=== PATIENT | female | born 1965 | race Caucasian/White ===

== ENCOUNTER 2019-07-21 08:53 | Outpatient (CLI) | payer MEDICARE, BC, SELFPAY ==
--- NOTE | 2019-07-24 00:41 | WPDPFTINT ---
PFT Interpretation PFT Interpretation: DOS:07/21/2019 REQUESTING: Dr. Osullivan REASON FOR TESTING: Cough PULMONARY FUNCTION TESTS Spirometry: Moderately severe decrease in FEV1 55% predicted. Severe decrease in FVC 48%. Normal FEV1%. No bronchodilator was given. Lung volumes: Mild restrictive impairment with mild decrease in total lung capacity 78% predicted. There is a decrease in ERV at 21% predicted which may be due to BMI elevation 40.2. Mild air trapping is present with increased residual volume 121%. Mild increase in airway resistance 134%. Diffusion: DLCO is moderately decreased 45%. DLCO corrected for alveolar volume is normal. Flow volume loop: Not reproducible. IMPRESSION: Mild restrictive impairment with moderately severe decrease in diffusion. Mild air trapping. Decreased DLCO with restriction can be seen in pneumonitis and interstitial lung diseases including sarcoidosis. Elevated body mass index can cause restriction but not the decrease in diffusion. Consider high resolution chest CT to further evaluate the decreased diffusion. Nelly Condon MD
== END 2019-07-21 08:54 | disposition home or self-care (01) ==
LOC: ANHPFT 08:57
PROVIDERS: PCP Family Medicine; Visit Provider Family Medicine
DX: R05 Cough (principal); R94.2 Abnormal results of pulmonary function studies
CPT/HCPCS: 94375; 94726; 94729

== ENCOUNTER 2019-09-21 15:17 | Emergency (ER) | payer MEDICARE, SELFPAY ==
[2019-09-21 15:25] VITALS: BP 102/76; PULSE 96; RESP 16; TEMP 37.7; O2SAT 94
--- NOTE | 2019-09-21 15:26 | ED.EAR ---
HPI - Ear Problem General Chief complaint: Ear <COLLIN Trevizo Last Filed: 09/21/19 16:30> Stated complaint: left ear pain <COLLIN Trevizo Last Filed: 09/21/19 16:30> Time Seen by Provider: 09/21/19 15:19 <COLLIN Trevizo Last Filed: 09/21/19 16:30> Source: patient <COLLIN Trevizo Last Filed: 09/21/19 16:30> Mode of arrival: ambulatory <COLLIN Trevizo Last Filed: 09/21/19 16:30> Limitations: no limitations <COLLIN Trevizo Last Filed: 09/21/19 16:30> History of Present Illness HPI Narrative: Pt is a 54 y/o female who presents to the ED with c/o constant lt ear ache and fullness for 3 weeks. She states that she called her PCP to get an appointment and instead they called her something in the pharmacy, but when she went to the pharmacy it was not there, so she decided to come to the ED. Pt reports chills, but denies fever, ear drainage, cough, congestion, sore throat, or rhinorrhea. She has a H/O CHF, CABG, CAD, HTN, and DM. <COLLIN Trevizo Last Filed: 09/21/19 16:30> MD Complaint: ear pain <COLLIN Trevizo Last Filed: 09/21/19 16:30> Location: left ear <COLLIN Trevizo Last Filed: 09/21/19 16:30> Duration: constant <COLLIN Trevizo Last Filed: 09/21/19 16:30> Relieving factors: nothing <COLLIN Trevizo Last Filed: 09/21/19 16:30> Discharge from ear: Reports no <COLLIN Trevizo Last Filed: 09/21/19 16:30> Associated symptoms ear: other (chills) <COLLIN Trevizo Last Filed: 09/21/19 16:30> Related Data Home medications: Home Medications Medication Instructions Recorded Confirmed alprazolam 09/21/19 atorvastatin 09/21/19 carvedilol 09/21/19 hydroxyzine HCl 09/21/19 insulin glargine U-300 conc unit SUBCUT HS 09/21/19 [Toujeo SoloStar U-300 Insulin] insulin lispro [Humalog KwikPen unit SUBCUT 09/21/19 Insulin] losartan 09/21/19 omeprazole 09/21/19 sevelamer carbonate 09/21/19 <Judi Anaya PA-C - Last Filed: 09/21/19 16:30> Allergies/adverse reactions: Allergies Allergy/AdvReac Type Severity Reaction Status Date / Time No Known Allergies Allergy Unverified 09/21/19 15:24 <COLLIN Trevizo Last Filed: 09/21/19 16:30> Review of Systems Review of Systems: All systems reviewed & are unremarkable except as noted in HPI and below <COLLIN Trevizo Last Filed: 09/21/19 16:30> Constitutional: Constitutional: Reports chills and Denies fever(s) <COLLIN Trevizo Last Filed: 09/21/19 16:30> ENT: Denies ear discharge, Reports otalgia (lt ear ache and fullness), Denies nasal congestion, Denies sore throat and Denies other (rhinorrhea) <COLLIN Trevizo Last Filed: 09/21/19 16:30> Respiratory: Respiratory: Denies cough <COLLIN Trevizo Last Filed: 09/21/19 16:30> [facility] Past Medical History Medical History: Medical History CAD (coronary artery disease) CHF (congestive heart failure) Diabetes mellitus HTN (hypertension) <COLLIN Trevizo Last Filed: 09/21/19 16:30> Surgical History Surgical History: Surgical History H/O section H/O tubal ligation H/O: hysterectomy Hx of CABG <Judi Anaya PA-C - Last Filed: 09/21/19 16:30> Family History Family History: Family History (Updated 12/28/18 @ 11:13 by DOCTOR UNKNOWN) Mother Patient's mother is <Judi Anaya PA-C - Last Filed: 09/21/19 16:30> Social History Social History: Social History Smoking status: Never smoker Alcohol intake: current <Judi Anaya PA-C - Last Filed: 09/21/19 16:30> Exam Narrative: Exam Narrative: GENERAL: Well-appearing, obese, and in no acute
--- NOTE | 2019-09-21 16:42 | PC.NURSE ---
Per SHIRA Lynn, pt's left ear irrigated with warm water and had return of large amt of black ear wax. Pt reports relief of pain.
[2019-09-21 16:50] VITALS: BP 128/76; PULSE 85; RESP 20; TEMP 37.9; O2SAT 98
== END 2019-09-21 16:54 | disposition home or self-care (01) ==
PROVIDERS: Emergency Provider Emergency Medicine; PCP Family Medicine
DX: H61.22 Impacted cerumen, left ear (principal); I50.9 Heart failure, unspecified; I25.10 Atherosclerotic heart disease of native coronary artery without angina pectoris; I11.0 Hypertensive heart disease with heart failure; E11.9 Type 2 diabetes mellitus without complications; Z95.1 Presence of aortocoronary bypass graft; Z79.4 Long term (current) use of insulin
CPT/HCPCS: 69209; 99282

== ENCOUNTER 2019-09-23 19:23 | Inpatient (IN) | payer MEDICARE, SELFPAY ==
--- NOTE | ~2019-09-23 | XR_ITS ---
EXAMINATION: XR chest-chest tube insert/pos DATE: 09/30/2019 10:51 INDICATION: Right pneumothorax. TECHNIQUE: A single frontal view of the chest was obtained. COMPARISON: Chest single view at 5:24 AM FINDINGS: There are patchy airspace opacities throughout the lungs bilaterally. A skin fold overlies left hemithorax. No pneumothorax. 2 right-sided chest tubes are noted. Median sternotomy wires are no lucia. There is extensive gas in the chest wall bilaterally. The endotracheal tube tip is 2.5 cm above the cullen. The nasogastric tube is not well-visualized distally. IMPRESSION: 1. No pneumothorax. Two right-sided chest tubes noted. 2. Diffuse lung disease, consistent with pneumonia versus acute respiratory distress syndrome (ARDS). Reviewed, dictated and finalized at location A. IMPRESSION: 1. No pneumothorax. Two right-sided chest tubes noted. 2. Diffuse lung disease, consistent with pneumonia versus acute respiratory dis tress syndrome (ARDS).
--- NOTE | ~2019-09-23 | XR_ITS ---
EXAMINATION: XR chest 1V portable DATE: 09/28/2019 07:47 INDICATION: Worsening hypoxia. TECHNIQUE: A single frontal view of the chest was obtained. COMPARISON: Chest single view 09/25/2019 FINDINGS: There are airspace opacities in all right lung zones and in left mid and lower lung zones. No pleural effusion or pneumothorax. Cardiomegaly is noted. Median sternotomy wires and mediastinal s urgical clips are seen, likely from prior coronary artery bypass grafting. There are multiple old hea led right rib fractures. IMPRESSION: 1. Worsened diffuse lung disease, consistent with pulmonary edema versus pneumonia versus acute respi ratory distress syndrome (ARDS). 2. Cardiomegaly. Reviewed, dictated and finalized at location A. IMPRESSION: 1. Worsened diffuse lung disease, consistent with pulmonary edema versus pneumo prateek versus acute respiratory distress syndrome (ARDS). 2. Cardiomegaly.
--- NOTE | ~2019-09-23 | XR_ITS ---
EXAMINATION: XR chest 1V portable EXAM DATE: 09/23/2019 20:53 INDICATION: Cough and fever. Weakness. TECHNIQUE: Portable AP frontal chest x-ray was obtained. Comparison is made to prior examination from 08/09/2019. FINDINGS: Chronically elevated left hemidiaphragm with adjacent atelectasis. Again there is mild card iomegaly. Development of pulmonary vascular congestion. Bilateral indistinct reticulation, some groun d glass opacities, could indicate edema and/or infection. No sizable pleural effusion. No pneumothora x. Sternotomy wires are present without findings to suggest sternal dehiscence. Mild thoracic scolios is. IMPRESSION: 1. Cardiomegaly, congestion, possible mild pulmonary edema. Infection not excludable. Reviewed, dictated and finalized at location A. IMPRESSION: 1. Cardiomegaly, congestion, possible mild pulmonary edema. Infection not excl udable.
--- NOTE | ~2019-09-23 | XR_ITS ---
EXAMINATION: XR abdomen NG/feed tube insert INDICATION: Nasogastric tube insertion TECHNIQUE: Portable AP KUB-NG at 0958 hours COMPARISON: None available FINDINGS: The nasogastric tube is in the stomach. A moderate to large right pneumothorax is noted. IMPRESSION: 1. Nasogastric tube in the stomach. 2. Moderate to large right pneumothorax. Reviewed, dictated and finalized at location B.
--- NOTE | ~2019-09-23 | XR_ITS ---
XR chest-chest tube insert/pos 09/29/2019 17:58 Indication: Chest tube placement. Low oxygen saturation. Procedure: AP portable chest Comparison: Comparison to multiple prior studies sequentially, with oldest reviewed study dated 09/28. Findings: Significant reduction in size of right pneumothorax post chest tube insertion. The pneumoth orax is small amount. Endotracheal tube tip approximately 4 cm above the cullen. NG tube in the stoma ch. Diffuse bilateral airspace disease has progressed. Left IJ central line tip in the SVC. There is extensive subcutaneous emphysema right chest wall. Impression: 1: Significant reduction in size of right pneumothorax post chest tube placement. 2: Progression of diffuse bilateral airspace disease which may represent edema, pneumonia and/or FERNANDO S. Reviewed, dictated and finalized at location A. Impression: 1: Significant reduction in size of right pneumothorax post chest tube placemen t. 2: Progression of diffuse bilateral airspace disease which may represent edema , pneumonia and/or ARDS.
--- NOTE | ~2019-09-23 | XR_ITS ---
EXAMINATION: XR chest-chest tube insert/pos DATE: 09/29/2019 11:31 INDICATION: Right pneumothorax status post chest tube adjustment. TECHNIQUE: A single frontal view of the chest was obtained. COMPARISON: Chest single view at 10:53 AM FINDINGS: There are patchy airspace opacities throughout the lungs bilaterally, right worse than left . No pleural effusion. There is a tiny right pneumothorax. There is a right-sided chest tube in expec lucia position. The endotracheal tube tip is 11 mm above the cullen. Median sternotomy wires are noted. The heart size is normal. There is gas in right lateral chest wall. A left internal jugular central venous catheter is seen with tip in the superior vena cava. IMPRESSION: 1. Tiny right pneumothorax with interval improvement. Right-sided chest tube in expected position. 2. Diffuse lung disease, consistent with pneumonia versus acute respiratory distress syndrome (ARDS). Reviewed, dictated and finalized at location A. IMPRESSION: 1. Tiny right pneumothorax with interval improvement. Right-sided chest tube in expected position. 2. Diffuse lung disease, consistent with pneumonia versus acute respiratory dis tress syndrome (ARDS).
--- NOTE | ~2019-09-23 | XR_ITS ---
EXAMINATION: XR chest ET placement INDICATION: Nasogastric TECHNIQUE: Portable AP chest at respiratory failure and central line insertion COMPARISON: 0454 hours FINDINGS: The endotracheal tube ends approximately 1.9 cm above the cullen. The nasogastric tube is followed as far as the stomach. Its tip is beyond the inferior margin of the radiograph. A left inter nal jugular central venous catheter is been inserted which ends with its tip at the distal superior v chauncey cava. A moderate to large right pneumothorax is now present. There is diffuse opacification of th e left hemithorax and near complete collapse of the right lung. Cardiomegaly is noted. Median sternot darrin wires and mediastinal surgical clips are seen, likely from prior coronary artery bypass grafting. IMPRESSION: 1. Moderate to large right pneumothorax. This finding was discussed with Dr. Blu Issa MD a t 1021 hours on 09/29/2019. 2. Endotracheal and nasogastric tubes and left internal jugular catheter in adequate position. 3. Unchanged diffuse opacity of the left lung and near complete collapse of right lung. Reviewed, dictated and finalized at location B. IMPRESSION: 1. Moderate to large right pneumothorax. This finding was discussed with Dr. Wanda Issa MD at 1021 hours on 09/29/2019. 2. Endotracheal and nasogastric tubes and left internal jugular catheter in ursula quate position. 3. Unchanged diffuse opacity of the left lung and near complete collapse of rig ht lung.
--- NOTE | ~2019-09-23 | XR_ITS ---
EXAMINATION: XR chest 1V portable DATE: 09/30/2019 06:25 INDICATION: Bilateral infiltrates. TECHNIQUE: A single frontal view of the chest was obtained. COMPARISON: Chest single view 09/29/2019 FINDINGS: There is a moderate-sized right pneumothorax. The right-sided chest tube has retracted slig htly. There are patchy airspace opacities throughout the lungs bilaterally. No pleural effusion. The heart size is normal. Median sternotomy wires are noted. A skin fold overlies left chest. The endotra cheal tube tip is 3.0 cm above the cullen. There is gas in right lateral chest wall. The nasogastric tube is not well-visualized distally. IMPRESSION: 1. Worsened moderate-sized right pneumothorax with slight retraction of the chest tube. I discussed t his result with Dr. Issa on 09/30/19 at 7:41 AM. 2. Diffuse lung disease, consistent with pneumonia versus acute respiratory distress syndrome (ARDS). Reviewed, dictated and finalized at location A. IMPRESSION: 1. Worsened moderate-sized right pneumothorax with slight retraction of the m[address] st tube. I discussed this result with Dr. Issa on 09/30/19 at 7:41 AM. 2. Diffuse lung disease, consistent with pneumonia versus acute respiratory dis tress syndrome (ARDS).
--- NOTE | ~2019-09-23 | XR_ITS ---
EXAMINATION: XR chest 1V portable DATE: 09/29/2019 06:26 INDICATION: Bilateral infiltrates. TECHNIQUE: A single frontal view of the chest was obtained. COMPARISON: Chest single view 09/28/2019 FINDINGS: There are patchy airspace opacities throughout the lungs bilaterally with relative sparing of left upper lung zone. There is mild elevation of left hemidiaphragm. No pleural effusion or pneumo thorax. Cardiomegaly is noted. Median sternotomy wires and mediastinal surgical clips are seen, likel y from prior coronary artery bypass grafting. There are multiple old healed right rib fractures. IMPRESSION: 1. Worsened diffuse lung disease, consistent with pulmonary edema versus pneumonia versus acute respi ratory distress syndrome (ARDS). 2. Cardiomegaly. Reviewed, dictated and finalized at location A. IMPRESSION: 1. Worsened diffuse lung disease, consistent with pulmonary edema versus pneumo prateek versus acute respiratory distress syndrome (ARDS). 2. Cardiomegaly.
--- NOTE | ~2019-09-23 | US_ITS ---
EXAMINATION: US right upper quadrant DATE: 09/25/2019 10:23 INDICATION: Abnormal liver function tests. TECHNIQUE: Multiple grayscale and Doppler ultrasound images of the abdomen were obtained. COMPARISON: CT abdomen 05/24/2019 FINDINGS: The visualized portions of the head, body, and tail of the pancreas are normal. The liver i s normal without focal lesion. No liver surface nodularity. There is normal flow in main portal vein. The gallbladder is normal in size and contains sludge. No gallstones or gallbladder wall thickening. There was no sonographic Mercado sign. The common duct is normal and measures 4 mm. The spleen is nor mal in size. Calcifications in the spleen are consistent with old granulomatous disease. IMPRESSION: 1. No evidence of cirrhosis. Reviewed, dictated and finalized at location A.
--- NOTE | ~2019-09-23 | XR_ITS ---
EXAMINATION: XR chest-chest tube insert/pos DATE: 09/29/2019 11:31 INDICATION: Right pneumothorax. TECHNIQUE: A single frontal view of the chest was obtained. COMPARISON: Chest single view at 9:55 AM FINDINGS: There is a large right pneumothorax. There are airspace opacities in all lung zones bilater ally. No pleural effusion. The heart size is normal. The endotracheal tube tip is 10 mm above the car benjie. Median sternotomy wires are noted. There is a chest tube in right chest wall. There are multiple old healed right rib fractures. There is gas in right lateral chest wall. A left internal jugular ce ntral venous catheter is seen with tip in the superior vena cava. IMPRESSION: 1. Persistent large right pneumothorax. Chest tube in abnormal position. 2. Unchanged diffuse lung disease, consistent with pneumonia versus acute respiratory distress syndro me (ARDS) and right-sided atelectasis. Reviewed, dictated and finalized at location A. IMPRESSION: 1. Persistent large right pneumothorax. Chest tube in abnormal position. 2. Unchanged diffuse lung disease, consistent with pneumonia versus acute respi ratory distress syndrome (ARDS) and right-sided atelectasis.
--- NOTE | ~2019-09-23 | XR_ITS ---
EXAMINATION: XR chest 1V portable DATE: 09/25/2019 06:06 INDICATION: Pneumonia. TECHNIQUE: A single frontal view of the chest was obtained. COMPARISON: Chest single view 09/23/2019, abdomen CT 05/24/2019 FINDINGS: There is chronic elevation of left hemidiaphragm. There are mild airspace opacities in the mid and lower lung zones. No pleural effusion or pneumothorax. The heart size is normal. Median ronquillo otomy wires and mediastinal surgical clips are seen, likely from prior coronary artery bypass graftin g. There are multiple old healed right rib fractures. IMPRESSION: 1. Unchanged mild airspace opacities in the mid and lower lung zones, consistent with atelectasis aj cris pneumonia. Reviewed, dictated and finalized at location A. IMPRESSION: 1. Unchanged mild airspace opacities in the mid and lower lung zones, consisten t with atelectasis versus pneumonia.
[2019-09-23 19:33] VITALS: BP 153/68; PULSE 87; RESP 22; TEMP 38.9; O2SAT 92
--- NOTE | 2019-09-23 20:15 | ED.FEVER ---
HPI - Fever General Chief Complaint: Fever Stated Complaint: Fever, panic attack? Time Seen by Provider: 09/23/19 19:37 Source: patient Mode of arrival: ambulatory Limitations: no limitations History of Present Illness HPI Narrative: This is a 54 year old female that presents to the ER for fever today. Reports she was almost through her dialysis today and started to feel generally unwell. Reports she was febrile. Reports she has had a productive cough, but this has been chronic for her. Reports she was put on an antibiotic today for an ear infection of the left ear. Reports a couple episodes of vomiting yesterday. Denies chest pain, shortness of breath, sore throat, abdominal pain, diarrhea, dysuria or hematuria. Related Data Home Medications Medication Instructions Recorded Confirmed alprazolam 09/21/19 atorvastatin 09/21/19 carvedilol 09/21/19 hydroxyzine HCl 09/21/19 insulin glargine U-300 conc unit SUBCUT HS 09/21/19 [Toujeo SoloStar U-300 Insulin] insulin lispro [Humalog KwikPen unit SUBCUT 09/21/19 Insulin] losartan 09/21/19 omeprazole 09/21/19 sevelamer carbonate 09/21/19 Allergies Allergy/AdvReac Type Severity Reaction Status Date / Time No Known Allergies Allergy Unverified 09/21/19 15:24 Review of Systems Review of Systems: Narrative: CONSTITUTIONAL: Reports fever ENT: Denies rhinorrhea, congestion, sore throat CARDIOVASCULAR: Denies chest pain RESPIRATORY: Reports cough. Denies dyspnea. GASTROINTESTINAL: Reports nausea, vomiting, and diarrhea. Denies abdominal pain GENITOURINARY: Denies dysuria or hematuria. SKIN: Denies rash All systems reviewed & are unremarkable except as noted in HPI and below [facility] Family History Family History (Updated 12/28/18 @ 11:13 by DOCTOR UNKNOWN) Mother Patient's mother is Social History Social History Smoking status: Never smoker Alcohol intake: current Exam Narrative: Exam Narrative: GENERAL: Well-appearing, obese, and in no acute distress. HEAD: Normocephalic, atraumatic. EYES: EOMI. ENT: Nares clear, no rhinorrhea or epistaxis. Mucous membranes moist. Oropharynx without tonsillar hypertrophy exudate or other lesions. Bilateral TMs pearly russell non-bulging NECK: Supple. No adenopathy or masses. CHEST: Clear to auscultation. No respiratory distress. No wheezes rales or rhonchi HEART: Regular rate and rhythm. No murmur heard. Normal peripheral pulses. ABDOMEN: Soft, nontender, nondistended, normal active bowel sounds. EXTREMITIES: Normal range of motion. No edema. Right upper arm dialysis graft without surrounding erythema or edema SKIN: Warm, dry, no rash. NEURO: No focal deficits. Alert and oriented x3. PSYCH: Normal mood and affect Course Consultations Consultation #1: Spoke with hospitalist about patient and work-up who accepts admission Date: 09/23/19 Time: 23:38 Vital Signs Vital signs: Vital Signs Temperature 102.1 F H 09/23/19 19:33 Pulse Rate 87 09/23/19 19:33 Respiratory Rate 22 H 09/23/19 19:33 Blood Pressure 153/68 H 09/23/19 19:33 Pulse Oximetry 92 09/23/19 19:33 Temperature 99.6 F 09/23/19 23:09 Pulse Rate 80 09/23/19 23:09 Respiratory Rate 22 H 09/23/19 19:33 Blood Pressure 129/84 09/23/19 23:09 Pulse Oximetry 99 09/23/19 23:09 MDM - Fever MDM Narrative Medical decision making narrative: Patient presents to the ER for fever and generalized weakness. Patient febrile upon arrival to 102. Patient with oxygen saturation in the low 90s/high 80s on room air. Patient placed on 2L NC with improvement. CBC without leukocytosis. Hemoglobin appears to be around baseline. Metabolic panel with kidney function which appears to be around baseline. BNP is elevated to 3630. CRP, LDH and ferritin are elevated. Lactic acid is not elevated. Influenza screen is negative. Chest x-ray shows bilateral reticulations/groundglass
[2019-09-23 20:37] LABS: Basophils Percent Auto 0.2 % (0.2-1.2); Hematocrit 32.9 % (37.0-47.0); Hemoglobin 10.5 g/dL (12.0-15.0); Immature Granulocyte Absolute 0.04 K/mm3 (0.00-0.031); Immature Granulocyte Percent A 0.7 % (0-0.5); Lymphocytes Absolute Auto 0.93 K/mm3 (0.9-3.2); Lymphocytes Percent Auto 17.3 % (18.3-44.2); Mean Corpuscular HGB Conc 31.9 g/dl (32-36); Mean Corpuscular Hemoglobin 32.6 pg (26-34); Mean Corpuscular Volume 102.2 fl (80-100); Mean Platelet Volume 10.1 fl (7.4-10.4); Monocytes Absolute Auto 0.5 K/mm3 (0.1-0.6); Monocytes Percent Auto 9.5 % (2.6-8.5); Neutrophils Absolute Auto 3.9 K/mm3 (1.3-6.7); Neutrophils Percent Auto 72.3 % (45.5-73.1); Platelet Count Result 163 k/mm3 (150-375); Red Blood Count 3.22 M/mm3 (4.2-5.4); Red Cell Distribution Width 13.1 % (11.5-14.5); White Blood Count 5.4 K/mm3 (4.5-10.0)
[2019-09-23 20:48] LABS: INR 0.9; Lactic Acid Reflex 1.1 mmol/L (0.7-2.1); Prothrombin Time 11.8 Seconds (11.1-14.7)
[2019-09-23 20:49] LABS: Partial Thromboplastin Time 25.2 SECONDS (22.3-36.8)
[2019-09-23 20:50] LABS: Alanine Aminotransferase 34 U/L (4-35); Albumin Level 3.7 g/dL (3.5-5.1); Alkaline Phosphatase 178 U/L (38-126); Aspartate Amino Transferase 44 U/L (14-36); Bilirubin,Total 0.3 mg/dL (0.2-1.3); Blood Urea Nitrogen 36 mg/dL (7-17); Calcium 8.6 mg/dL (8.4-10.2); Carbon Dioxide 32 mmol/L (22-30); Chloride 95 mmol/L (98-107); Estimated Glomerular Filt Rate 10; Glucose 96 mg/dL (65-105); Lipase 399 U/L (23-300); Potassium 4.6 mmol/L (3.4-5.0); Sodium 134 mmol/L (137-145)
[2019-09-23 21:07] VITALS: TEMP 37.6
[2019-09-23 21:27] LABS: NT Pro B Type Natriuretic Pept 3630 PG/ML (5-100)
[2019-09-23 21:28] LABS: Lactate Dehydrogenase 563 U/L (313-618)
[2019-09-23 22:20] LABS: CRP 6.3 mg/dL (<1.0)
[2019-09-23 23:09] VITALS: BP 129/84; PULSE 80; TEMP 37.6; O2SAT 99
--- NOTE | 2019-09-23 23:13 | ECG_ITS ---
Measurements Intervals Ida Rate: 77 P: 46 IL: 142 QRS: -23 QRSD: 98 T: 67 QT: 412 QTc: 466 Interpretive Statements SINUS RHYTHM WITH SINUS ARRHYTHMIA BORDERLINE R WAVE PROGRESSION, ANTERIOR LEADS BORDERLINE ST-T WAVE ABNORMALITY- LATERAL LEADS BASELINE ARTIFACT- I, II, AVR, V6 BORDERLINE ECG Electronically Signed On 09-24-2019 7:49:46 CDT by Phoenix Watkins D.O.
[2019-09-23] MEDS: BUMETANIDE 1 MG TABLET PO (23:35)
[2019-09-24] VITALS (14 sets, daily range): BP systolic 98–150; BP diastolic 50–82; PULSE 67–88; RESP 16–20; TEMP 36.7–38.2; O2SAT 94–100; BMI 43.6
--- NOTE | 2019-09-24 01:12 | PC.NURSE ---
Dialysis normally takes 3.5L off but only took 3.2 off due to Pt feeling ill and not gaining much weight. Pt states she goes to dialysis on ,Sat. Dialysis port located right upper arm.
--- NOTE | 2019-09-24 01:52 | ADMGEN ---
This patient, Kayli Snowden, was admitted to [facility] Surg Room 331-01. Patient/family oriented to hospital policies and general routines including ID bracelet, bed and alarms, visiting hours, pain management, procedures, bathroom and other care routines, personal items, smoking policy, room service/diet, and visiting hours. Valuables list has been completed. Information on how to activate the Rapid Response Team has been discussed. Patient/Family are encouraged to report perceived risks to care and to ask questions if they do not understand what they are told or what they should do.
--- NOTE | 2019-09-24 05:19 | PM.IMHP ---
H&P: HPI History of Present Illness Chief complaint: Fever and chills Narrative: Kayli Snowden is a 54 year old female with a past medical history of coronary artery disease, insulin-dependent diabetes and end-stage renal disease who presented to the ER due to not feeling well with fevers and chills. To the ER on 09/21/2019 due to left ear pain. At that time she she was found have cerumen impaction which was cleared and she was discharged home without antibiotics. The patient called her primary care physician who then prescribed her doxycycline. She took the doxycycline on the and . She then went to her hemodialysis appointment on the . Her docketing specialist at that time changed her antibiotics to Augmentin and she took 1 dose prior to coming to the ER. However her ear pain had already resolved prior to the antibiotic change. When she arrived at her dialysis appointment she did not have a fever. Unfortunately part of the way through her dialysis appointment she began to feel weak and was chilled. She usually does get some chills at dialysis due to keeping the facility cool. But she also noticed that over the last couple of days she has had a cough productive of brown sputum. She always has a chronic dry cough but her cough has increased in frequency and intensity and is now productive. When she went home after dialysis she began having rigors and could not give warm and subsequently decided to come to the ER. On arrival to the ER the patient's temperature was as high as 102.1. She denies any known ill contacts but does have to go to dialysis 3 times a week. She also went shopping at [employer] about 2 weeks ago and has very crowded. She has been having an intermittent frontal headache. She denies any visual changes, neck stiffness or confusion. She denies any sore throat or difficulty swallowing. She has not had any recent travel. She denies any diarrhea or changes in bowel habits but has been having some nausea. She still does produce urine usually each morning. She denies any dysuria foul-smelling urine or hematuria. She has not noticed any easy bruising. Review of Systems Review of Systems: Narrative: 12 systems were reviewed with pertinent positives and negatives per HPI. Except as documented in the HPI, all other systems were reviewed and are negative. [facility] Past Medical History Medical History (Updated 09/24/19 @ 05:35 by Nissa Irene DO) CAD (coronary artery disease) CHF (congestive heart failure) Diabetes mellitus ESRD on hemodialysis Since June 2017 with hemodialysis Wednesday//Wednesday at [facility] in [place] managed by Dr. Zhao HTN (hypertension) Surgical History Surgical History (Updated 09/24/19 @ 05:35 by Nissa Irene DO) H/O section H/O tubal ligation History of bilateral cataract extraction 2011 History of hysterectomy 2007 Hx of CABG Three vessel CABG in 2018 Presence of arteriovenous fistula for hemodialysis Left upper arm Family History Family History Mother Heart disease She in her 70s of late onset heart disease. Father Diabetes mellitus Hypertension Heart disease End stage renal disease Social History Social History (Updated 09/24/19 @ 05:39 by Nissa Irene DO) Social History: Primary care physician: Dr. Pennie Osullivan Code status: Full code Smoking status: Never smoker Alcohol intake: current Alcohol use details: The patient only rarely drinks alcohol and only in small amounts. Substance use: never Additional living arrangements comments: She lives with her boyfriend of 4 years. She has 4 adult children who she reports all relatively healthy. 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 She is now disabled. Gender identity (if verbali
[2019-09-24 08:06] LABS: Add Urine Microscopic? YES; Appearance Urine Cloudy (Clear); Bacteria Urine Trace /hpf; Bilirubin Urine Negative (Negative); Blood Urine Negative (Negative); Color Urine Yellow (Yellow); Glucose Urine UA 1+ mg/dL (Negative); Ketones Urine Negative (Negative); Leukocyte Esterase Ur Negative LEU/UL (Negative); Mucus Urine Rare /lpf; Nitrate Urine Negative (Negative); Protein Urine 2+ mg/dL (Negative); RBC Urine 0-2 /hpf (0-2); Specific Grav Ur 1.016 (1.001-1.035); Squamous Epithelial Cell Urine Many /hpf (Few); Urobilinogen Urine Negative mg/dL (<2.0); WBC Urine 0-3 /hpf
[2019-09-24] MEDS: FLUTICASONE PROPIONATE 0.05% NA SPR 16 GM BTL (*BKC) 1 SPRAY NASAL ×2 (08:33→17:30)
[2019-09-24] MEDS: BUMETANIDE 1 MG TABLET PO ×3 (08:34→17:30)
[2019-09-24] MEDS: MONTELUKAST SODIUM 10 MG TABLET PO (08:34)
[2019-09-24] MEDS: ATORVASTATIN 40 MG TABLET PO (08:34)
[2019-09-24] MEDS: PANTOPRAZOLE 40 MG TABLET PO (08:34)
[2019-09-24] MEDS: ASPIRIN 81 MG ENTERIC TABLET PO (08:35)
[2019-09-24] MEDS: LOSARTAN POTASSIUM 100 MG TABLET PO (08:35)
[2019-09-24] MEDS: hydrOXYzine HCL 25 MG TABLET PO (08:38)
[2019-09-24] MEDS: ALPRAZOLAM 0.5 MG TABLET PO (08:38)
[2019-09-24] MEDS: INSULIN ASPART (*BKC) 100 UNITS/ML 10 UNITS SUB-Q ×2 (08:39→12:14)
[2019-09-24] MEDS: INSULIN ASPART (*BKC) 100 UNITS/ML SUB-Q ×2 (08:56→12:15)
[2019-09-24 09:01] LABS: Glucose Point of Care 202 (65-105)
[2019-09-24] MEDS: carvediloL 25 MG TABLET PO ×2 (09:02→21:58)
[2019-09-24] MEDS: HEPARIN SODIUM 5,000 UNITS/ML VIAL 5000 UNITS SUB-Q ×2 (09:02→21:58)
[2019-09-24 12:17] LABS: Glucose Point of Care 217 (65-105)
--- NOTE | 2019-09-24 12:36 | PM.CNNEP ---
Assessment and Plan Assessment and plan (1) ESRD on hemodialysis: Code(s): N18.6 - End stage renal disease; Z99.2 - Dependence on renal dialysis Status: Acute Assessment and Plan: The patient has end-stage kidneys. She is due for dialysis on Wednesday. (2) Bilateral pneumonia: Qualifiers: Lung location: lower lobe of lung Pneumonia type: due to unspecified organism Qualified Code(s): J18.9 - Pneumonia, unspecified organism Code(s): J18.9 - Pneumonia, unspecified organism Status: Acute Assessment and Plan: The patient has pneumonia. This would be community-acquired if bacteria. She is on Ceftriaxone and Azithromycin. She is a person under investigation for covid (3) Diabetes mellitus: Code(s): E11.9 - Type 2 diabetes mellitus without complications Status: Acute Assessment and Plan: She has diabetes. On Accu-Cheks and sliding-scale insulin (4) Erythropoietin deficiency anemia: Code(s): D63.1 - Anemia in chronic kidney disease Status: Acute Assessment and Plan: Hemoglobin is target. We will continue Epogen while here (5) KEO (renal osteodystrophy): Code(s): N25.0 - Renal osteodystrophy Status: Acute Assessment and Plan: Will get a renal panel in the morning to see how her phosphorus is (6) HTN (hypertension): Code(s): I10 - Essential (primary) hypertension Status: Acute Assessment and Plan: Blood pressure is up and down. Will follow on her current antihypertensive regimen History of Present Illness Reason for Consult Consult date: 09/24/19 Chief Complaint Chief complaint: Fever and chills History of Present Illness Narrative: Kayli is a very pleasant 54-year-old lady who has end-stage renal disease on dialysis 3 times a week, coronary disease, congestive heart failure, diabetes, hypertension. She has been on dialysis for 2 years. She dialyzes on Tuesdays and Saturdays under Dr. Kayden Zhao. She has not applied for a kidney transplant because of her weight. She is trying to get on a weight loss program or possibly get bariatric surgery to enable her to get a transplant. She has never been on peritoneal dialysis. Generally her treatments do pretty well. She does not gain a whole lot a weight between treatments. The patient says that in the last couple of days she has felt gradually worse with the cough, fever, and today she developed headaches and nausea and vomiting. The patient did have some ear pain last week and she went to the emergency room. They removed cerumen from her ears. She went to her primary care physician and she got some antibiotics. She denies any chest pain. No belly pain. No skin rash or joint pains. Review of Systems Constitutional: Constitutional: Reports no additional constitutional complaints Eyes: Eyes: Reports no additional eye complaints ENT: Reports system reviewed and no additional complaints, except as documented Cardiovascular: Cardiovascular: Reports no additional cardiovascular complaints Respiratory: Respiratory: Reports no additional respiratory complaints Gastrointestinal: Gastrointestinal: Reports no additional gastrointestinal complaints Genitourinary: Genitourinary: Reports no additional female genitourinary complaints Musculoskeletal: Musculoskeletal: Reports no additional musculoskeletal complaints Integumentary/Breasts: Skin/Breast: Reports system reviewed and no additional complaints, except as docu Neurologic: Reports system reviewed and no additional complaints, except as documented Psychiatric: Psychiatric: Reports no additional psychiatric complaints PMFSH Past Medical History Medical History CAD (coronary artery disease) CHF (congestive heart failure) Diabetes mellitus ESRD on hemodialysis Since June 2017 with hemodialysis Wednesday//
[2019-09-24] MEDS: CALCIUM CARBONATE (TUMS) 500 MG (200 MG ELEMENTAL) PO ×2 (14:50→21:58)
--- NOTE | 2019-09-24 15:38 | PM.IMPN ---
Progress Note: A&P Assessment and Plan (1) Bilateral pneumonia: Qualifiers: Lung location: lower lobe of lung Pneumonia type: due to unspecified organism Qualified Code(s): J18.9 - Pneumonia, unspecified organism Code(s): J18.9 - Pneumonia, unspecified organism Status: Acute Assessment and Plan: Patient's imaging could be consistent with pulmonary edema or pneumonia. Given her fever and cough, PNA appears more likely especially since she just finished a HD treatment (although incomplete by about 30 minutes). The patient has been tested for COVID-19 through the [facility]. The patient is on appropriate isolation at this time. BCx pending. Add Sputum Cx. Influenza swab was negative in the ER. Continue Rocephin and Azithromycin. (2) Hypoxia: Code(s): R09.02 - Hypoxemia Status: Acute Assessment and Plan: Likely secondary to underlying infection. Hypoxia not severe given that she is at 100% on 2L. Wean supplemental oxygen as tolerated. (3) CHF (congestive heart failure): Qualifiers: Heart failure chronicity: chronic Heart failure type: unspecified Qualified Code(s): I50.9 - Heart failure, unspecified Code(s): I50.9 - Heart failure, unspecified Status: Acute Assessment and Plan: Echo December 2018 showing EF 55% with DD Grade I, hypokinetic segments, moderate MR and severe pulmonary HTN. Patient clinically euvolumic. Continue to monitor. Bumex resumed. (4) ESRD on hemodialysis: Code(s): N18.6 - End stage renal disease; Z99.2 - Dependence on renal dialysis Status: Acute Assessment and Plan: Patient was taken off HD 30 minutes early from treatment yesterday. Nephrology has been consulted. Continue current HD schedule of . Subjective Date/time seen: 09/24/19 15:38 Interval history: 54yo female with ESRD here for fever from PNA. Feels unwell today. Has a chronic cough but worse over the past 3 weeks. Had the fevers noted yesterday with HD but had chills x 1 week. Today, she has a headache and nausea. She is nibbling on some food and tolerating. No CP. Exam Narrative: Exam Narrative: Tm 102.1 98.6 110/82 100% on 2L General - NARD sitting up in bed Chest - very distant BS, nml RR, no conversational dyspnea. wet cough at times. CV - RRR S1/S2, PMI mid left sternal border; Tele showing no significnat dysrhythmias GI - soft, obese, NT, +BS Ext - Thrill and bruit right upper extremity AV fistula. No pedal edema. Psych - nml mood and affect Skin - cool and dry Objective Data Vital Signs Vital Signs: Vital Signs - 24 hr 09/23/19 19:33 09/23/19 21:07 09/23/19 23:09 Temperature 102.1 F H 99.6 F 99.6 F Pulse Rate 87 80 Respiratory Rate 22 H Blood Pressure 153/68 H 129/84 Pulse Oximetry 92 99 09/24/19 01:35 09/24/19 04:00 09/24/19 05:55 Temperature 98.4 F 98.2 F Pulse Rate 68 67 79 Respiratory Rate 18 18 Blood Pressure 132/68 150/73 H Pulse Oximetry 95 94 09/24/19 08:00 09/24/19 09:02 09/24/19 10:33 Temperature 98.1 F Pulse Rate 81 88 88 Respiratory Rate 18 Blood Pressure 98/50 L Pulse Oximetry 100 09/24/19 13:53 Temperature 98.6 F Pulse Rate 88 Respiratory Rate 16 Blood Pressure 110/82 Pulse Oximetry 100 Intake/Output Intake/Output: Intake & Output 09/21/19 09/22/19 09/23/19 09/24/19 23:59 23:59 23:59 23:59 Intake Total 150 650 Output Total 0 Balance 150 650 Meds/Results Medications: Active Medications Generic Name Dose Route Start Last Admin Trade Name Phillip PRN Reason Stop Dose Admin Alprazolam 0.5 mg 09/24/19 09:00 09/24/19 08:38 Xanax PO 0.5 mg DAILY HOOD Administration Aspirin 81 mg 09/24/19 09:00 09/24/19 08:35 Aspirin Ec PO 81 mg DAILY HOOD Administration Atorvastatin Calcium 40 mg 09/24/19 09:00 09/24/19 08:34 Lipitor PO 40 mg DAILY HOOD Administration Bumetanide 1 mg 09/24/19 09:
[2019-09-24 19:01] LABS: Glucose Point of Care 108 (65-105)
[2019-09-24 21:35] LABS: Glucose Point of Care 243 (65-105)
[2019-09-24] MEDS: INSULIN GLARGINE (*BKC) 100 UNITS/ML 50 UNITS SUB-Q (21:59)
[2019-09-24] MEDS: PROMETHAZINE HCL 25 MG TABLET PO (22:01)
[2019-09-25] VITALS (20 sets, daily range): BP systolic 97–138; BP diastolic 43–68; PULSE 57–68; RESP 12–18; TEMP 36.9–38.1; O2SAT 94–97
[2019-09-25 07:00] LABS: Albumin Level 3.3 g/dL (3.5-5.1); Blood Urea Nitrogen 62 mg/dL (7-17); CRP 4.9 mg/dL (<1.0); Calcium 8.1 mg/dL (8.4-10.2); Carbon Dioxide 23 mmol/L (22-30); Chloride 92 mmol/L (98-107); Estimated CRCL calculation 9 ml/min; Estimated Glomerular Filt Rate 6; Glucose 172 mg/dL (65-105); Lactate Dehydrogenase 561 U/L (313-618); Magnesium 1.9 mg/dL (1.6-2.3); Phosphorus 7.1 mg/dL (2.5-4.5); Potassium 4.9 mmol/L (3.4-5.0); Sodium 128 mmol/L (137-145)
[2019-09-25 07:05] LABS: Basophils Percent Auto 0.2 % (0.2-1.2); Hematocrit 31.5 % (37.0-47.0); Hemoglobin 9.8 g/dL (12.0-15.0); Immature Granulocyte Absolute 0.02 K/mm3 (0.00-0.031); Immature Granulocyte Percent A 0.4 % (0-0.5); Lymphocytes Absolute Auto 1.27 K/mm3 (0.9-3.2); Lymphocytes Percent Auto 27.1 % (18.3-44.2); Mean Corpuscular HGB Conc 31.1 g/dl (32-36); Mean Corpuscular Hemoglobin 32.7 pg (26-34); Mean Platelet Volume 10.6 fl (7.4-10.4); Monocytes Absolute Auto 0.3 K/mm3 (0.1-0.6); Monocytes Percent Auto 6.6 % (2.6-8.5); Neutrophils Absolute Auto 3.1 K/mm3 (1.3-6.7); Neutrophils Percent Auto 65.7 % (45.5-73.1); Platelet Count Result 126 k/mm3 (150-375); Red Cell Distribution Width 13.2 % (11.5-14.5); White Blood Count 4.7 K/mm3 (4.5-10.0)
[2019-09-25 09:15] LABS: Folic Acid > 20.0 ng/mL (2.76->20); Vitamin B12 > 1000.0 pg/mL (239-931)
[2019-09-25] MEDS: ALPRAZOLAM 0.5 MG TABLET PO (10:19)
[2019-09-25] MEDS: hydrOXYzine HCL 25 MG TABLET PO (10:19)
[2019-09-25] MEDS: ATORVASTATIN 40 MG TABLET PO (10:19)
[2019-09-25] MEDS: MONTELUKAST SODIUM 10 MG TABLET PO (10:19)
[2019-09-25] MEDS: LOSARTAN POTASSIUM 100 MG TABLET PO (10:19)
[2019-09-25] MEDS: FLUTICASONE PROPIONATE 0.05% NA SPR 16 GM BTL (*BKC) 1 SPRAY NASAL ×2 (10:19→17:38)
[2019-09-25] MEDS: PANTOPRAZOLE 40 MG TABLET PO (10:19)
[2019-09-25] MEDS: carvediloL 25 MG TABLET PO ×2 (10:19→21:06)
[2019-09-25] MEDS: BUMETANIDE 1 MG TABLET PO (10:20)
[2019-09-25] MEDS: CALCIUM CARBONATE (TUMS) 500 MG (200 MG ELEMENTAL) PO ×3 (10:20→17:38)
[2019-09-25] MEDS: HEPARIN SODIUM 5,000 UNITS/ML VIAL 5000 UNITS SUB-Q ×2 (10:20→21:02)
[2019-09-25] MEDS: ASPIRIN 81 MG ENTERIC TABLET PO (10:20)
[2019-09-25 10:24] LABS: Glucose Point of Care 117 (65-105)
--- NOTE | 2019-09-25 14:35 | PM.PNNEP ---
Progress Note: A&P Assessment and Plan (1) ESRD on hemodialysis: Code(s): N18.6 - End stage renal disease; Z99.2 - Dependence on renal dialysis Status: Acute Assessment and Plan: The patient has end-stage kidneys. She is due for dialysis today. (2) Bilateral pneumonia: Qualifiers: Lung location: lower lobe of lung Pneumonia type: due to unspecified organism Qualified Code(s): J18.9 - Pneumonia, unspecified organism Code(s): J18.9 - Pneumonia, unspecified organism Status: Acute Assessment and Plan: The patient has pneumonia. This would be community-acquired if bacteria. She is on Ceftriaxone and Azithromycin. She is a person under investigation for covid. test still pending. (3) Diabetes mellitus: Code(s): E11.9 - Type 2 diabetes mellitus without complications Status: Acute Assessment and Plan: She has diabetes. On Accu-Cheks and sliding-scale insulin (4) Erythropoietin deficiency anemia: Code(s): D63.1 - Anemia in chronic kidney disease Status: Acute Assessment and Plan: Hemoglobin is dosn a bit at 9.8. will get epo. (5) KEO (renal osteodystrophy): Code(s): N25.0 - Renal osteodystrophy Status: Acute Assessment and Plan: phos a bit high. see how it is tomorrow as she is not eating. she is on tumbs for binders. (6) HTN (hypertension): Code(s): I10 - Essential (primary) hypertension Status: Acute Assessment and Plan: Blood pressure is doing pretty well. no changes here. Subjective Date/time seen: 09/25/19 14:35 Interval history: patient is slightly better with cough and sob. she still has aches and pains. Review of Systems Cardiovascular: Cardiovascular: Reports no additional cardiovascular complaints Gastrointestinal: Gastrointestinal: Reports no additional gastrointestinal complaints Genitourinary: Genitourinary: Reports no additional female genitourinary complaints Exam Narrative: Exam Narrative: Well developed well-nourished in no acute distress Lungs clear Heart regular without rub Abdomen bowel sounds positive soft nontender Extremities no edema Skin no rash Objective Data Vital Signs Vital Signs: Vital Signs - 24 hr 09/24/19 16:00 09/24/19 18:00 09/24/19 20:00 Temperature 37.5 C Pulse Rate 71 76 75 Respiratory Rate 18 Blood Pressure 149/58 H Pulse Oximetry 100 09/24/19 21:58 09/24/19 22:00 09/24/19 22:01 Temperature 38.2 C H 38.2 C H Pulse Rate 84 79 Respiratory Rate 20 Blood Pressure 127/81 Pulse Oximetry 95 09/25/19 00:00 09/25/19 01:30 09/25/19 04:00 Temperature 37.1 C Pulse Rate 62 63 57 L Respiratory Rate 18 Blood Pressure 114/52 L Pulse Oximetry 95 09/25/19 06:00 09/25/19 08:00 09/25/19 10:19 Temperature 36.9 C Pulse Rate 66 66 67 Respiratory Rate 18 Blood Pressure 120/51 L Pulse Oximetry 97 09/25/19 11:18 09/25/19 12:00 Temperature 37.3 C Pulse Rate 68 65 Respiratory Rate 12 Blood Pressure 138/67 Pulse Oximetry 96 Intake/Output Intake/Output: Intake & Output 09/22/19 09/23/19 09/24/19 09/25/19 23:59 23:59 23:59 23:59 Intake Total 150 1140 150 Output Total 600 0 Balance 150 540 150 Meds/Results Medications: Active Medications Generic Name Dose Route Start Last Admin Trade Name Freq PRN Reason Stop Dose Admin Alprazolam 0.5 mg 09/24/19 09:00 09/25/19 10:19 Xanax PO 0.5 mg DAILY HOOD Administration Aspirin 81 mg 09/24/19 09:00 09/25/19 10:20 Aspirin Ec PO 81 mg DAILY HOOD Administration Atorvastatin Calcium 40 mg 09/24/19 09:00 09/25/19 10:19 Lipitor PO 40 mg DAILY HOOD Administration Bumetanide 1 mg 09/24/19 09:00 09/25/19 14:10 Bumex Po PO Not Given TID HOOD Calcium Carbonate 200 mg 09/24/19 17:30 09/25/19 14:03 Tums PO 200 mg TIDPC HOOD Administration Carvedilol 25 mg 09/24/19 0
[2019-09-25 14:55] LABS: Glucose Point of Care 130 (65-105)
--- NOTE | 2019-09-25 16:29 | PM.IMPN ---
Progress Note: A&P Assessment and Plan (1) Bilateral pneumonia: Qualifiers: Lung location: lower lobe of lung Pneumonia type: due to unspecified organism Qualified Code(s): J18.9 - Pneumonia, unspecified organism Code(s): J18.9 - Pneumonia, unspecified organism Status: Acute Assessment and Plan: Patient's imaging could be consistent with pulmonary edema or pneumonia. Given her fever and cough, PNA appears more likely especially since she just finished a HD treatment. The patient has been tested for COVID-19 through the [facility]. The patient is on appropriate isolation at this time. Feritin higher at 1920 but CRP improved. LDH remaining normal. WBC remaining normal. COVID pending. BCx NGTD. Sputum Cx TNP. Influenza swab was negative in the ER. Continue Rocephin and Azithromycin. (2) Hypoxia: Code(s): R09.02 - Hypoxemia Status: Acute Assessment and Plan: Likely secondary to underlying infection. Hypoxia not severe. She has been weaned to 1 L. Continue to wean oxygen as tolerated. (3) CHF (congestive heart failure): Qualifiers: Heart failure chronicity: chronic Heart failure type: unspecified Qualified Code(s): I50.9 - Heart failure, unspecified Code(s): I50.9 - Heart failure, unspecified Status: Acute Assessment and Plan: Echo December 2018 showing EF 55% with DD Grade I, hypokinetic segments, moderate MR and severe pulmonary HTN. Patient remains euvolumic. Continue to monitor. Bumex on hold due to low blood pressure. (4) ESRD on hemodialysis: Code(s): N18.6 - End stage renal disease; Z99.2 - Dependence on renal dialysis Status: Acute Assessment and Plan: Patient was taken off HD 30 minutes early from treatment on Wednesday. Patient's blood pressure however has been soft. Nephrology aware in regards to planned dialysis tomorrow. Continue current HD schedule of /. (5) Thrombocytopenia: Code(s): D69.6 - Thrombocytopenia, unspecified Status: Acute Assessment and Plan: Platelet count slight low. Suspect related to current infection but patient currently on heparin for prophylaxis. She also has a macrocytosis. B12 and folate levels were normal. Performed an abd US looking for cirrhosis or splenomegaly but US was normal. Continue to monitor for now. Subjective Date/time seen: 09/25/19 16:29 Interval history: 54yo female with ESRD here for fever from PNA. Complains of dizziness and lightheadedness. No nausea or vomiting. No chest pain or shortness of breath. She has a dry cough. Eating okay. She has not been out of bed because of the lightheadedness. She denies that the dizziness is room spinning sensation. His mostly lightheadedness. Exam Narrative: Exam Narrative: Tm 100.7 102/68 Blood pressure 128/55 lying and 122/62 sitting. Could not do standing blood pressures because of dizziness General - NARD lying semi recumbent bed Chest -faint inspiratory crackles bibasilar otherwise distant breath sounds. CV - RRR S1/S2 GI - soft, obese, NT, +BS Ext - No pedal edema. Psych - nml mood and affect Skin -warm and dry Objective Data Vital Signs Vital Signs: Vital Signs - 24 hr 09/24/19 18:00 09/24/19 20:00 09/24/19 21:58 Temperature 99.5 F Pulse Rate 76 75 84 Respiratory Rate 18 Blood Pressure 149/58 H Pulse Oximetry 100 09/24/19 22:00 09/24/19 22:01 09/25/19 00:00 Temperature 100.7 F H 100.7 F H Pulse Rate 79 62 Respiratory Rate 20 Blood Pressure 127/81 Pulse Oximetry 95 09/25/19 01:30 09/25/19 04:00 09/25/19 06:00 Temperature 98.8 F 98.5 F Pulse Rate 63 57 L 66 Respiratory Rate 18 18 Blood Pressure 114/52 L 120/51 L Pulse Oximetry 95 97 09/25/19 08:00 09/25/19 10:19 09/25/19 11:18 Temperature 99.2 F Pulse Rate 66 67 68 Respiratory Rate 12 Blood Pressure 138/67 Pulse Oximetry 96 09/25/19 12:00 09/25/19 14
[2019-09-25] MEDS: ACETAMINOPHEN 325 MG TABLET 650 MG (17:52)
[2019-09-25 18:09] LABS: Glucose Point of Care 160 (65-105)
[2019-09-25] MEDS: IBUPROFEN 400 MG TABLET PO (21:02)
[2019-09-25] MEDS: INSULIN GLARGINE (*BKC) 100 UNITS/ML 50 UNITS SUB-Q (21:14)
[2019-09-25 21:59] LABS: Glucose Point of Care 189 (65-105)
[2019-09-26] VITALS (18 sets, daily range): BP systolic 104–156; BP diastolic 33–78; PULSE 59–80; RESP 16–22; TEMP 36.4–39.1; O2SAT 91–95
[2019-09-26] MEDS: AZITHROMYCIN 250 MG TABLET 500 MG PO ×2 (00:39→20:33)
[2019-09-26 06:15] LABS: Hematocrit 27.9 % (37.0-47.0); Mean Corpuscular HGB Conc 32.3 g/dl (32-36); Mean Corpuscular Hemoglobin 32.3 pg (26-34); Mean Platelet Volume 10.4 fl (7.4-10.4); Platelet Count Result 124 k/mm3 (150-375); Red Blood Count 2.79 M/mm3 (4.2-5.4); Red Cell Distribution Width 13.2 % (11.5-14.5); White Blood Count 3.4 K/mm3 (4.5-10.0)
[2019-09-26 06:25] LABS: Albumin Level 3.1 g/dL (3.5-5.1); Blood Urea Nitrogen 74 mg/dL (7-17); Calcium 8.1 mg/dL (8.4-10.2); Carbon Dioxide 28 mmol/L (22-30); Chloride 94 mmol/L (98-107); Estimated CRCL calculation 7 ml/min; Estimated Glomerular Filt Rate 4; Glucose 56 mg/dL (65-105); Phosphorus 7.6 mg/dL (2.5-4.5); Potassium 4.8 mmol/L (3.4-5.0); Sodium 133 mmol/L (137-145)
[2019-09-26] MEDS: GLUCOSE ORAL GEL 15 GM OF GLUCSE IN 37.5 GM TUBE PO (06:47)
[2019-09-26 06:58] LABS: Glucose Point of Care 68 (65-105)
--- NOTE | 2019-09-26 07:48 | PC.NURSE ---
Dr Hinson called and update given -advised T max last night was 99.1. Also reported glucose levels. Advised no resp distress. Notified of am lab results and that patient is scheduled for dialysis today.
--- NOTE | 2019-09-26 09:10 | PM.IMPN ---
Progress Note: A&P Assessment and Plan (1) Bilateral pneumonia: Qualifiers: Lung location: lower lobe of lung Pneumonia type: due to unspecified organism Qualified Code(s): J18.9 - Pneumonia, unspecified organism Code(s): J18.9 - Pneumonia, unspecified organism Status: Acute Assessment and Plan: Chest xray on admission with bilateral indistinct reticulation, some ground glass opacities. Given fever and cough, clinically consistent with pneumonia versus pulmonary edema. COVID-19 testing initiated through [facility] with results still pending. Influenza testing negative. LDH normal. Ferritin higher at 1920 on 09/25/2019 but CRP decreased to 4.9. Will continue IV ceftriaxone and oral azithromycin. Sputum culture not performed based on Gram stain. Blood cultures remain negative. Group A Strep culture test. Remains on oxygen but down to 1 L. Continue isolation. Will monitor (2) Acute respiratory failure with hypoxia: Code(s): J96.01 - Acute respiratory failure with hypoxia Status: Acute Assessment and Plan: Result of pneumonia. Continue treatment as noted above. Wean oxygen as tolerated. (3) Diabetes mellitus: Qualifiers: Diabetes mellitus type: type 2 Diabetes mellitus exterminator helper insulin use: with longterm use Diabetes mellitus complication status: with kidney complications Diabetes mellitus complication detail: with chronic kidney disease Chronic kidney disease stage: on chronic dialysis Qualified Code(s): E11.22 - Type 2 diabetes mellitus with diabetic chronic kidney disease; N18.6 - End stage renal disease; Z79.4 - adjunct faculty for medical terminology (current) use of insulin; Z99.2 - Dependence on renal dialysis Code(s): E11.9 - Type 2 diabetes mellitus without complications Status: Acute Assessment and Plan: Had hypoglycemia this morning with glucose 56. Treated appropriately. Patient reports did not eat well yesterday. Will decrease Lantus tonight for safety. Continue sliding scale insulin. Will continue to monitor and adjust treatment as needed. (4) CHF (congestive heart failure): Qualifiers: Heart failure chronicity: chronic Heart failure type: unspecified Qualified Code(s): I50.9 - Heart failure, unspecified Code(s): I50.9 - Heart failure, unspecified Status: Acute Assessment and Plan: Echocardiogram December 2018 showing EF 55% with DD Grade I, hypokinetic segments, moderate MR and severe pulmonary hypertension. Remains euvolemic. Continue to hold Bumex for now. Will monitor. (5) ESRD on hemodialysis: Code(s): N18.6 - End stage renal disease; Z99.2 - Dependence on renal dialysis Status: Acute Assessment and Plan: Nephrology consulted and appreciate input. Plan for hemodialysis today. On //Wed schedule. Will continue to follow. (6) Thrombocytopenia: Code(s): D69.6 - Thrombocytopenia, unspecified Status: Acute Assessment and Plan: Platelets remain slightly low at 124,000 today but stable. RUQ ultrasound with no evidence of cirrhosis. Vitamin B12 and folate normal. Will continue to follow while here. (7) Erythropoietin deficiency anemia: Code(s): D63.1 - Anemia in chronic kidney disease Status: Acute Assessment and Plan: Hgb stable at 9.0 today. Continue Epoetin. Will follow. (8) DVT prophylaxis: Code(s): Z29.9 - Encounter for prophylactic measures, unspecified Status: Acute Assessment and Plan: Heparin subcutaneously. Time Spent With Patient Time with patient: 15 - 25 minutes Subjective Date/time seen: 09/26/19 09:10 Interval history: Date of Service: 09/26/2019. 54yo female with ESRD admitted with fever, pneumonia. Feels a little bit better today. Still with dry cough. Some dizziness and lightheadedness. Review of Systems Review of Systems: Narrative: Feels a little bit better today. Constitutional: Constitutional: R
[2019-09-26] MEDS: PANTOPRAZOLE 40 MG TABLET PO (10:02)
[2019-09-26] MEDS: ALPRAZOLAM 0.5 MG TABLET PO (10:03)
[2019-09-26] MEDS: MONTELUKAST SODIUM 10 MG TABLET PO (10:03)
[2019-09-26] MEDS: hydrOXYzine HCL 25 MG TABLET PO (10:03)
[2019-09-26] MEDS: ATORVASTATIN 40 MG TABLET PO (10:03)
[2019-09-26] MEDS: ASPIRIN 81 MG ENTERIC TABLET PO (10:03)
[2019-09-26] MEDS: CALCIUM CARBONATE (TUMS) 500 MG (200 MG ELEMENTAL) PO ×3 (10:04→17:48)
[2019-09-26] MEDS: HEPARIN SODIUM 5,000 UNITS/ML VIAL 5000 UNITS SUB-Q ×2 (10:04→20:33)
--- NOTE | 2019-09-26 10:08 | PM.PNNEP ---
Progress Note: A&P Assessment and Plan (1) ESRD on hemodialysis: Code(s): N18.6 - End stage renal disease; Z99.2 - Dependence on renal dialysis Status: Acute Assessment and Plan: The patient has end-stage kidneys. She is due for dialysis today. She is Wednesday. I wrote orders and nursing station is calling the dialysis personnel. (2) Bilateral pneumonia: Qualifiers: Lung location: lower lobe of lung Pneumonia type: due to unspecified organism Qualified Code(s): J18.9 - Pneumonia, unspecified organism Code(s): J18.9 - Pneumonia, unspecified organism Status: Acute Assessment and Plan: The patient has pneumonia. This would be community-acquired if bacteria. She is on Ceftriaxone and Azithromycin. She is a person under investigation for covid. test still pending. (3) Diabetes mellitus: Code(s): E11.9 - Type 2 diabetes mellitus without complications Status: Acute Assessment and Plan: She has diabetes. On Accu-Cheks and sliding-scale insulin (4) Erythropoietin deficiency anemia: Code(s): D63.1 - Anemia in chronic kidney disease Status: Acute Assessment and Plan: Hemoglobin is down a bit at 9.0. will get epo. (5) KEO (renal osteodystrophy): Code(s): N25.0 - Renal osteodystrophy Status: Acute Assessment and Plan: phos a bit high. see how it is tomorrow as she is not eating. she is on tumbs for binders. (6) HTN (hypertension): Code(s): I10 - Essential (primary) hypertension Status: Acute Assessment and Plan: Blood pressure is doing pretty well. no changes here. Subjective Date/time seen: 09/26/19 10:08 Interval history: patient is slightly better with cough and sob. she still has aches and pains but this is better 2. . Review of Systems Cardiovascular: Cardiovascular: Reports no additional cardiovascular complaints Respiratory: Respiratory: Reports no additional respiratory complaints Gastrointestinal: Gastrointestinal: Reports no additional gastrointestinal complaints Genitourinary: Genitourinary: Reports no additional female genitourinary complaints Exam Narrative: Exam Narrative: Well developed well-nourished in no acute distress Lungs clear to auscultation Heart regular without rub Abdomen bowel sounds positive soft nontender Extremities no edema Skin no rash or subcu nodules Objective Data Vital Signs Vital Signs: Vital Signs - 24 hr 09/25/19 10:19 09/25/19 11:18 09/25/19 12:00 Temperature 37.3 C Pulse Rate 67 68 65 Respiratory Rate 12 Blood Pressure 138/67 Pulse Oximetry 96 09/25/19 14:00 09/25/19 16:00 09/25/19 17:52 Temperature 37.6 C 37.8 C H Pulse Rate 68 63 Respiratory Rate 16 Blood Pressure 102/68 Pulse Oximetry 96 09/25/19 18:00 09/25/19 19:58 09/25/19 20:00 Temperature 37.8 C H 38.1 C H Pulse Rate 68 67 Respiratory Rate 18 Blood Pressure 128/55 L Pulse Oximetry 95 09/25/19 21:00 09/25/19 21:02 09/25/19 21:06 Temperature 38.1 C H Pulse Rate 65 65 Respiratory Rate Blood Pressure 111/53 L Pulse Oximetry 96 09/25/19 22:01 09/25/19 22:29 09/25/19 22:49 Temperature 37.3 C 37.3 C Pulse Rate 59 L Respiratory Rate 16 Blood Pressure 101/66 Pulse Oximetry 94 09/26/19 02:00 09/26/19 06:00 Temperature 36.8 C 37.2 C Pulse Rate 59 L 80 Respiratory Rate 16 16 Blood Pressure 110/60 104/51 L Pulse Oximetry 94 95 Intake/Output Intake/Output: Intake & Output 09/23/19 09/24/19 09/25/19 09/26/19 23:59 23:59 23:59 23:59 Intake Total 150 1440 400 Output Total 600 0 Balance 150 840 400 Meds/Results Medications: Active Medications Generic Name Dose Route Start Last Admin Trade Name Freq PRN Reason Stop Dose Admin Acetaminophen 650 mg 09/25/19 17:47 Tylenol Tablet PO Q6H PRN Mild Pain (1-3) or Fever Alprazolam 0.5 mg 04
[2019-09-26] MEDS: FLUTICASONE PROPIONATE 0.05% NA SPR 16 GM BTL (*BKC) 1 SPRAY NASAL ×2 (10:10→17:49)
[2019-09-26 10:20] LABS: Glucose Point of Care 136 (65-105)
[2019-09-26] MEDS: PROMETHAZINE HCL 25 MG TABLET PO (15:14)
[2019-09-26] MEDS: ACETAMINOPHEN 325 MG TABLET 650 MG PO (17:55)
[2019-09-26 18:09] LABS: Glucose Point of Care 73 (65-105)
[2019-09-26 18:09] LABS: Glucose Point of Care 136 (65-105)
[2019-09-26 20:59] LABS: Glucose Point of Care 105 (65-105)
--- NOTE | 2019-09-26 22:10 | PC.NURSE ---
Patient to dialysis. IV saline locked.
[2019-09-26] MEDS: HEPARIN SODIUM 1,000 UNITS/ML VIAL 500 UNITS IV PUSH ×2 (22:28→23:38)
[2019-09-26] MEDS: HEPARIN SODIUM 1,000 UNITS/ML VIAL 1000 UNITS IV PUSH (22:28)
[2019-09-26] MEDS: EPOETIN ALFA 10,000 UNITS/ML VIAL 10000 UNITS IV PUSH (22:51)
[2019-09-27] VITALS (22 sets, daily range): BP systolic 94–160; BP diastolic 33–80; PULSE 61–86; RESP 18–24; TEMP 36.9–39.3; O2SAT 91–97
[2019-09-27] MEDS: PROMETHAZINE HCL 25 MG TABLET PO (00:01)
--- NOTE | 2019-09-27 00:50 | PC.NURSE ---
Patient returned from dialysis.
[2019-09-27] MEDS: ACETAMINOPHEN 325 MG TABLET 650 MG PO ×2 (01:10→11:46)
[2019-09-27 06:01] LABS: Hematocrit 27.7 % (37.0-47.0); Mean Corpuscular HGB Conc 32.5 g/dl (32-36); Mean Corpuscular Hemoglobin 32.1 pg (26-34); Mean Corpuscular Volume 98.9 fl (80-100); Mean Platelet Volume 10.1 fl (7.4-10.4); Platelet Count Result 123 k/mm3 (150-375); Red Cell Distribution Width 12.8 % (11.5-14.5); White Blood Count 2.9 K/mm3 (4.5-10.0)
[2019-09-27 06:24] LABS: Albumin Level 3.1 g/dL (3.5-5.1); Blood Urea Nitrogen 43 mg/dL (7-17); Calcium 7.4 mg/dL (8.4-10.2); Carbon Dioxide 32 mmol/L (22-30); Chloride 94 mmol/L (98-107); Estimated CRCL calculation 11 ml/min; Estimated Glomerular Filt Rate 7; Glucose 108 mg/dL (65-105); Phosphorus 4.7 mg/dL (2.5-4.5); Potassium 4.4 mmol/L (3.4-5.0); Sodium 134 mmol/L (137-145)
[2019-09-27 08:27] LABS: Glucose Point of Care 89 (65-105)
[2019-09-27] MEDS: LOSARTAN POTASSIUM 100 MG TABLET PO (08:52)
[2019-09-27] MEDS: PANTOPRAZOLE 40 MG TABLET PO (08:52)
[2019-09-27] MEDS: carvediloL 25 MG TABLET PO ×2 (08:52→20:36)
[2019-09-27] MEDS: CALCIUM CARBONATE (TUMS) 500 MG (200 MG ELEMENTAL) PO ×3 (08:52→16:42)
[2019-09-27] MEDS: ATORVASTATIN 40 MG TABLET PO (08:52)
[2019-09-27] MEDS: ALPRAZOLAM 0.5 MG TABLET PO (08:53)
[2019-09-27] MEDS: hydrOXYzine HCL 25 MG TABLET PO (08:53)
[2019-09-27] MEDS: MONTELUKAST SODIUM 10 MG TABLET PO (08:53)
[2019-09-27] MEDS: ASPIRIN 81 MG ENTERIC TABLET PO (08:53)
[2019-09-27] MEDS: HEPARIN SODIUM 5,000 UNITS/ML VIAL 5000 UNITS SUB-Q ×2 (08:53→20:36)
[2019-09-27] MEDS: FLUTICASONE PROPIONATE 0.05% NA SPR 16 GM BTL (*BKC) 1 SPRAY NASAL ×2 (08:54→16:43)
--- NOTE | 2019-09-27 11:53 | PM.IMPN ---
Progress Note: A&P Assessment and Plan (1) Bilateral pneumonia: Qualifiers: Lung location: lower lobe of lung Pneumonia type: due to unspecified organism Qualified Code(s): J18.9 - Pneumonia, unspecified organism Code(s): J18.9 - Pneumonia, unspecified organism Status: Acute Assessment and Plan: Chest xray on admission with bilateral indistinct reticulation, some ground glass opacities. Given fever and cough, clinically consistent with pneumonia versus pulmonary edema. COVID-19 testing initiated through [facility] with results now available and positive. Influenza testing negative. Will continue IV ceftriaxone and oral azithromycin. Sputum culture not performed based on Gram stain. Blood cultures remain negative. Group A Strep culture test negative. Now up to 5 L oxygen today. Continue to monitor closely. Will add guaifenesin to help with cough. Acetaminophen as needed for fever. (2) Acute respiratory failure with hypoxia: Code(s): J96.01 - Acute respiratory failure with hypoxia Status: Acute Assessment and Plan: Result of pneumonia. Up to 5 L oxygen as noted above. Continue treatment as noted above. Will also add albuterol HFA. (3) COVID-19 virus infection: Code(s): U07.1 - COVID-19 Status: Acute Assessment and Plan: COVID-19 testing positive. Continue treatment of pneumonia, acute respiratory failure as noted above. Will recheck LDH, CRP, ferritin and LFTs with labs in am. (4) Diabetes mellitus: Qualifiers: Diabetes mellitus type: type 2 Diabetes mellitus usp insulin use: with termination clerk use Diabetes mellitus complication status: with kidney complications Diabetes mellitus complication detail: with chronic kidney disease Chronic kidney disease stage: on chronic dialysis Qualified Code(s): E11.22 - Type 2 diabetes mellitus with diabetic chronic kidney disease; N18.6 - End stage renal disease; Z79.4 - buttermaker continuous churn (current) use of insulin; Z99.2 - Dependence on renal dialysis Code(s): E11.9 - Type 2 diabetes mellitus without complications Status: Acute Assessment and Plan: No further hypoglycemia. Glucose reviewed on 09/27/2019 and acceptable this morning. Will continue current Lantus but adjust as needed. Continue sliding scale insulin. Will monitor. (5) CHF (congestive heart failure): Qualifiers: Heart failure chronicity: chronic Heart failure type: unspecified Qualified Code(s): I50.9 - Heart failure, unspecified Code(s): I50.9 - Heart failure, unspecified Status: Acute Assessment and Plan: Echocardiogram December 2018 showing EF 55% with DD Grade I, hypokinetic segments, moderate MR and severe pulmonary hypertension. Stable with no sign of exacerbation. Continue to hold Bumex for now. Will monitor. (6) ESRD on hemodialysis: Code(s): N18.6 - End stage renal disease; Z99.2 - Dependence on renal dialysis Status: Acute Assessment and Plan: Nephrology consulted and appreciate input. Had hemodialysis yesterday. On //Wed schedule. Will continue to follow. (7) Thrombocytopenia: Code(s): D69.6 - Thrombocytopenia, unspecified Status: Acute Assessment and Plan: Platelets remain slightly low but stable at 123,000 today. RUQ ultrasound with no evidence of cirrhosis. Vitamin B12 and folate normal. Will continue to follow while here. (8) Erythropoietin deficiency anemia: Code(s): D63.1 - Anemia in chronic kidney disease Status: Acute Assessment and Plan: Hgb stable and unchanged at 9.0 today. Continue Epoetin. Will follow. (9) DVT prophylaxis: Code(s): Z29.9 - Encounter for prophylactic measures, unspecified Status: Acute Assessment and Plan: Heparin subcutaneously. Time Spent With Patient Time with patient: 15 - 25 minutes Subjective Date/time seen: 09/27/19 11:53 Interval history: Date of Servic
[2019-09-27 12:02] LABS: Glucose Point of Care 107 (65-105)
[2019-09-27] MEDS: GUAIFENESIN 200 MG/10 ML UDC PO ×2 (13:42→20:36)
[2019-09-27 14:11] LABS: Mycoplasma IgM Antibody Titer 124 U/mL (<770)
[2019-09-27 16:27] LABS: Glucose Point of Care 164 (65-105)
--- NOTE | 2019-09-27 18:45 | PCRCNOTE ---
Window of time for administration has passed. See next scheduled administration.
[2019-09-27] MEDS: ALBUTEROL SULFATE (*SP) AEROSOL 1 PUFF 2 PUFF INHALATION (19:50)
[2019-09-27] MEDS: INSULIN GLARGINE (*BKC) 100 UNITS/ML 25 UNITS SUB-Q (20:36)
[2019-09-27] MEDS: AZITHROMYCIN 250 MG TABLET 500 MG PO (20:36)
[2019-09-27 21:50] LABS: Glucose Point of Care 108 (65-105)
[2019-09-28] VITALS (39 sets, daily range): BP systolic 86–135; BP diastolic 31–111; PULSE 56–94; RESP 14–99; TEMP 35.9–39; O2SAT 22–100
--- NOTE | 2019-09-28 03:05 | PC.NURSE ---
Rebecca, Exterminator Helper Termite, notified per telephone of desaturation. Reported O2 sat was 54% on 5L NC. Explained Dr. Irene was notified.
--- NOTE | 2019-09-28 03:44 | PC.NURSE ---
0300 Patient called RN to room needing help, upon assessment, pt c/o SOB, RR elevated and o2 sat decreased, increased 02 to 8 lpm per NC. Requested assistance, Dr Irene notified. 0310 Respiratory present and placed patient on NRB 15 LPM, o2 sats increasing. RR 24-26, RN placed patient on tele/cont O2 sat monitor. 0315 Respiratory placed patient on 15 lpm high flow oxygen. RR 22, o2 sat 95% 0330 Dr Irene present to evaluate patient requesting ICU placement.
[2019-09-28] MEDS: PROMETHAZINE HCL 25 MG/ML AMPUL 12.5 MG IV PUSH (03:56)
--- NOTE | 2019-09-28 04:22 | P.PNCROSS_ITS ---
Event Note Event Note Event Note: I was called by nursing staff at 3:05 a.m. and notify the patient was having desaturations into the 50s. The patient had called nursing staff into the room because she knew that something was wrong. She had been having some increased shortness of breath and felt as if she was going to . Nursing staff had increase the patient's nasal cannula oxygen and had already notified respiratory therapy. The respiratory therapist placed patient on a non- rebreather the patient's oxygen saturations improved up to 100% while they obtain the equipment to set of high-flow nasal cannula. At the time that I arrived at the patient's bedside around 03:20 she is satting between 90 and 100% on 15 L high-flow oxygen. Patient had some vigorous coughing while I was in the room and had episode of post-tussive emesis. Patient was tachypneic with respiratory rate of 24 with accessory muscle use. The patient was febrile and diaphoretic. Given the patient's rapid increase in oxygen requirement I made the decision to transfer the patient to the ICU. Vitals: Temperature 100.2? pulse 72 respiratory rate 24 blood pressure 135/78 pulse ox ranging between 90 and 100% on 15 L high-flow GENERAL: Obese, acutely ill-appearing HEENT: No scleral icterus, positive conjunctival pallor, pupils are equal CARDIOVASCULAR: Regular rate, regular rhythm, no murmur RESPIRATORY: Mild tachypnea, no accessory muscle use, coarse crackles throughout ABDOMEN: Soft, distended/obese, normoactive bowel sounds INTEGUMENT: Diaphoretic, hot to touch NEUROLOGIC: Alert and oriented, speech is clear, no facial asymmetry PSYCHIATRIC: Appropriate mood and affect, pleasant and cooperative EXTREMITIES: Trace edema lower extremities, 2+ bilateral pedal pulses, 2+ left radial pulse 1. worsening hypoxic respiratory failure due to [id number] has been transferred to the ICU. Will continue patient on high-flow nasal cannula and may considervapo-therm. Drill Press Operator For Metal has been consulted and agrees with the above plan. Will continue albuterol inhalers but will change dosing to 6 puffs every 4 hours. Continue antibiotic therapy with Rocephin and azithromycin. 90 minutes spent in critical care activities. The patient has been updated as the plan of care. Due to a high probability of clinically significant, life threatening deterioration, the patient required my highest level of preparedness to intervene emergently and I personally spent this critical care time directly and personally managing the patient. This critical care time included obtaining a history; examining the patient; pulse oximetry; ordering and review of studies; arranging urgent treatment with development of a management plan; evaluation of patient's response to treatment; frequent reassessment; and discussions with other providers. It was exclusive of separately billable procedures and treating other patients and teaching time. Please see Assessment and Plan section and the rest of the note for further information on patient assessment and treatment.
--- NOTE | 2019-09-28 05:43 | PC.NURSE ---
Pt transferred to ICU 2 at 0535.
--- NOTE | 2019-09-28 05:48 | PC.NURSE ---
This patient, Kayli Snowden, was received from [[id number] ] on 09/28/19 at 0530. Personal belongings list checked and signed. Patient/family oriented to unit policies and routines
--- NOTE | 2019-09-28 06:13 | PC.NURSE ---
Daughter notified of transfer per patient request.
[2019-09-28 06:38] LABS: Hematocrit 26.3 % (37.0-47.0); Hemoglobin 8.4 g/dL (12.0-15.0); Mean Corpuscular HGB Conc 31.9 g/dl (32-36); Mean Corpuscular Hemoglobin 32.4 pg (26-34); Mean Corpuscular Volume 101.5 fl (80-100); Mean Platelet Volume 10.7 fl (7.4-10.4); Platelet Count Result 128 k/mm3 (150-375); Red Blood Count 2.59 M/mm3 (4.2-5.4); Red Cell Distribution Width 13.2 % (11.5-14.5); White Blood Count 3.9 K/mm3 (4.5-10.0)
[2019-09-28 07:02] LABS: Alanine Aminotransferase 35 U/L (4-35); Albumin Level 2.7 g/dL (3.5-5.1); Alkaline Phosphatase 150 U/L (38-126); Aspartate Amino Transferase 60 U/L (14-36); Bilirubin,Total 0.4 mg/dL (0.2-1.3); Blood Urea Nitrogen 53 mg/dL (7-17); CRP 17.2 mg/dL (<1.0); Calcium 6.9 mg/dL (8.4-10.2); Carbon Dioxide 29 mmol/L (22-30); Chloride 96 mmol/L (98-107); Estimated CRCL calculation 9 ml/min; Estimated Glomerular Filt Rate 6; Glucose 105 mg/dL (65-105); Lactate Dehydrogenase 934 U/L (313-618); Potassium 4.6 mmol/L (3.4-5.0); Sodium 133 mmol/L (137-145)
[2019-09-28] MEDS: ALBUTEROL SULFATE (*SP) AEROSOL 1 PUFF 6 PUFF INHALATION ×2 (08:35→13:20)
--- NOTE | 2019-09-28 08:47 | WPDCNINT ---
Assessment and Plan Assessment and plan (1) Acute respiratory failure with hypoxia: Code(s): J96.01 - Acute respiratory failure with hypoxia Status: Acute Assessment and Plan: acute respiratory failure most likely related to bilateral infiltrates secondary to COVID-19 viral pneumonia. - patient desaturated overnight and was brought to the ICU for further management. - Patient currently on 15 L high-flow nasal cannula with O2 sats greater than 96%, will start weaning FiO2 to maintain O2 sats between 92 and 96% - continue ceftriaxone and azithromycin - will add Tessalon Perles and Robitussin for cough - patient should be dialyzed with removal of fluid today - chest x-ray shows worsening bilateral infiltrates (2) COVID-19 virus infection: Code(s): U07.1 - COVID-19 Status: Acute Assessment and Plan: patient presented with fevers, chills, cough. Tested positive for COVID-19 - elevated LDH, CRP, - will check LDH, CRP, ferritin, procalcitonin, and D-dimer Q 48 hours (3) Bilateral pneumonia: Qualifiers: Lung location: lower lobe of lung Pneumonia type: due to unspecified organism Qualified Code(s): J18.9 - Pneumonia, unspecified organism Code(s): J18.9 - Pneumonia, unspecified organism Status: Acute Assessment and Plan: bilateral pneumonia, treatment as above (4) Diabetes mellitus: Qualifiers: Diabetes mellitus type: type 2 Diabetes mellitus exterminator helper insulin use: with fci use Diabetes mellitus complication status: with kidney complications Diabetes mellitus complication detail: with chronic kidney disease Chronic kidney disease stage: on chronic dialysis Qualified Code(s): E11.22 - Type 2 diabetes mellitus with diabetic chronic kidney disease; N18.6 - End stage renal disease; Z79.4 - detention (current) use of insulin; Z99.2 - Dependence on renal dialysis Code(s): E11.9 - Type 2 diabetes mellitus without complications Status: Acute Assessment and Plan: patient on Lantus, sliding scale insulin and Accu-Cheks (5) ESRD on hemodialysis: Code(s): N18.6 - End stage renal disease; Z99.2 - Dependence on renal dialysis Status: Acute Assessment and Plan: patient has a history of end-stage renal disease on hemodialysis, discuss with Nephrology, patient will get dialyzed with removal of fluids today (6) HTN (hypertension): Code(s): I10 - Essential (primary) hypertension Status: Acute Assessment and Plan: history of essential hypertension will hold lisinopril and Coreg for now (7) DVT prophylaxis: Code(s): Z29.9 - Encounter for prophylactic measures, unspecified Status: Acute Assessment and Plan: heparin subcu Additional Plan discussed with patient updated with her condition and plan of care. She is aware that I will be ordering Tessalon Perles and Robitussin code status: Full code Critical care time spent: 43 minutes Due to a high probability of clinically significant, life threatening deterioration, the patient required my highest level of preparedness to intervene emergently and I personally spent this critical care time directly and personally managing the patient. This critical care time included obtaining a history; examining the patient; pulse oximetry; ordering and review of studies; arranging urgent treatment with development of a management plan; evaluation of patient's response to treatment; frequent reassessment; and discussions with other providers. It was exclusive of separately billable procedures and treating other patients and teaching time. Please see Assessment and Plan section and the rest of the note for further information on patient assessment and treatment Armor Reconnaissance Vehicle Driver Consult Note Consult date: 09/28/19 Time Seen: 06:54 Reason for consult: COVID-19 POSITIVE, Worsening respiratory failure with hypoxia, stage renal disease on dialysis HPI
[2019-09-28] MEDS: ALPRAZOLAM 0.5 MG TABLET PO (09:40)
[2019-09-28] MEDS: hydrOXYzine HCL 25 MG TABLET PO (09:40)
[2019-09-28] MEDS: CALCIUM CARBONATE (TUMS) 500 MG (200 MG ELEMENTAL) PO ×3 (09:40→17:20)
[2019-09-28] MEDS: PROMETHAZINE HCL 25 MG TABLET PO (09:40)
[2019-09-28] MEDS: ATORVASTATIN 40 MG TABLET PO (09:42)
[2019-09-28] MEDS: GUAIFENESIN/DEXTROMETHORPHAN 10 ML UDC PO ×3 (09:42→17:19)
[2019-09-28] MEDS: BENZONATATE 100 MG CAPSULE 200 MG PO ×3 (09:42→17:19)
[2019-09-28] MEDS: PANTOPRAZOLE 40 MG TABLET PO (09:43)
[2019-09-28] MEDS: ASPIRIN 81 MG ENTERIC TABLET PO (09:43)
[2019-09-28] MEDS: FLUTICASONE PROPIONATE 0.05% NA SPR 16 GM BTL (*BKC) 1 SPRAY NASAL (09:43)
[2019-09-28] MEDS: carvediloL 25 MG TABLET PO (09:43)
[2019-09-28] MEDS: LOSARTAN POTASSIUM 100 MG TABLET PO (09:44)
[2019-09-28] MEDS: HEPARIN SODIUM 5,000 UNITS/ML VIAL 5000 UNITS SUB-Q ×2 (09:44→21:20)
[2019-09-28] MEDS: MONTELUKAST SODIUM 10 MG TABLET PO (09:44)
[2019-09-28] MEDS: ACETAMINOPHEN 325 MG TABLET 650 MG PO ×2 (09:49→17:18)
--- NOTE | 2019-09-28 12:05 | PM.IMPN ---
Progress Note: A&P Assessment and Plan (1) Acute respiratory failure with hypoxia: Code(s): J96.01 - Acute respiratory failure with hypoxia Status: Acute Assessment and Plan: Result of pneumonia. Acute worsening early this am with transfer to ICU. Now on 15 L high flow oxygen. Chest xray with worsened airspace disease today. Continue albuterol HFA. Continue antibiotics as noted below. Appreciate help from electric mule driver. Will continue to monitor closely. Telemetry reviewed on 09/28/2019 with sinus rhythm. (2) Bilateral pneumonia: Qualifiers: Lung location: lower lobe of lung Pneumonia type: due to unspecified organism Qualified Code(s): J18.9 - Pneumonia, unspecified organism Code(s): J18.9 - Pneumonia, unspecified organism Status: Acute Assessment and Plan: Chest xray on admission with bilateral indistinct reticulation, some ground glass opacities. Given fever and cough, clinically consistent with pneumonia versus pulmonary edema. COVID-19 testing initiated through [facility] with results now available and positive. Influenza testing negative. Will continue IV ceftriaxone and oral azithromycin. Sputum culture not performed based on Gram stain. Blood cultures remain negative. Group A Strep culture test negative. Increased oxygen need as noted above. Continue guaifenesin. Jessica Bonds added. (3) COVID-19 virus infection: Code(s): U07.1 - COVID-19 Status: Acute Assessment and Plan: COVID-19 testing positive. Continue treatment of pneumonia, acute respiratory failure as noted above. Ferritin higher at > 2000 today. LDH higher at 934 today. CRP also higher at 17.2 today. AST also slightly higher at 60 today. Continue to monitor acute phase reactants. (4) Diabetes mellitus: Qualifiers: Chronic kidney disease stage: on chronic dialysis Diabetes mellitus complication detail: with chronic kidney disease Diabetes mellitus complication status: with kidney complications Diabetes mellitus exterminator helper termite insulin use: with skilled nursing use Diabetes mellitus type: type 2 Qualified Code(s): E11.22 - Type 2 diabetes mellitus with diabetic chronic kidney disease; N18.6 - End stage renal disease; Z79.4 - alf (current) use of insulin; Z99.2 - Dependence on renal dialysis Code(s): E11.9 - Type 2 diabetes mellitus without complications Status: Acute Assessment and Plan: No further hypoglycemia. Glucose reviewed on 09/28/2019 and now stable. Will continue current Lantus but adjust as needed. Continue sliding scale insulin. Will monitor. (5) CHF (congestive heart failure): Qualifiers: Heart failure chronicity: chronic Heart failure type: unspecified Qualified Code(s): I50.9 - Heart failure, unspecified Code(s): I50.9 - Heart failure, unspecified Status: Acute Assessment and Plan: Echocardiogram December 2018 showing EF 55% with DD Grade I, hypokinetic segments, moderate MR and severe pulmonary hypertension. Remains stable with no sign of exacerbation. Continue to hold Bumex for now. Will monitor. (6) ESRD on hemodialysis: Code(s): N18.6 - End stage renal disease; Z99.2 - Dependence on renal dialysis Status: Acute Assessment and Plan: Nephrology consulted and appreciate input. Hemodialysis today. On //Wed schedule. Will continue to follow. (7) Thrombocytopenia: Code(s): D69.6 - Thrombocytopenia, unspecified Status: Acute Assessment and Plan: Platelets remain slightly low but with mild increase to 128,000 today. RUQ ultrasound with no evidence of cirrhosis. Vitamin B12 and folate normal. Will continue to follow while here. (8) Erythropoietin deficiency anemia: Code(s): D63.1 - Anemia in chronic kidney disease Status: Acute Assessment and Plan: Hgb remains at 8.4 today. Continue Epoetin. Will continue to follow. (9) DVT prophylaxis:
[2019-09-28 12:22] LABS: Ferritin > 2000.00 ng/mL (11.1-264)
[2019-09-28 12:31] LABS: Glucose Point of Care 93 (65-105)
[2019-09-28] MEDS: MIDODRINE HCL 2.5 MG TABLET 5 MG PO ×2 (12:40→14:56)
[2019-09-28] MEDS: ALBUMIN HUMAN 25% 12.5 GM/50ML 50 ML IVPB ×2 (13:45→15:15)
[2019-09-28] MEDS: EPOETIN ALFA 10,000 UNITS/ML VIAL 10000 UNITS IV PUSH (14:56)
--- NOTE | 2019-09-28 15:19 | PM.PNNEP ---
Progress Note: A&P Assessment and Plan (1) ESRD on hemodialysis: Code(s): N18.6 - End stage renal disease; Z99.2 - Dependence on renal dialysis Status: Acute Assessment and Plan: The patient has end-stage kidneys. She is on dialysis right now. (2) Bilateral pneumonia: Qualifiers: Lung location: lower lobe of lung Pneumonia type: due to unspecified organism Qualified Code(s): J18.9 - Pneumonia, unspecified organism Code(s): J18.9 - Pneumonia, unspecified organism Status: Acute Assessment and Plan: The patient has pneumonia. COVID-19 test was positive. (3) Diabetes mellitus: Qualifiers: Diabetes mellitus type: type 2 Diabetes mellitus senior care insulin use: with terminal system operator use Diabetes mellitus complication status: with kidney complications Diabetes mellitus complication detail: with chronic kidney disease Chronic kidney disease stage: on chronic dialysis Qualified Code(s): E11.22 - Type 2 diabetes mellitus with diabetic chronic kidney disease; N18.6 - End stage renal disease; Z79.4 - exterminator helper termite (current) use of insulin; Z99.2 - Dependence on renal dialysis Code(s): E11.9 - Type 2 diabetes mellitus without complications Status: Acute Assessment and Plan: She has diabetes. On Accu-Cheks and sliding-scale insulin Sugars are doing well (4) Erythropoietin deficiency anemia: Code(s): D63.1 - Anemia in chronic kidney disease Status: Acute Assessment and Plan: Hemoglobin is down a bit at 8.4 will get epo today (5) KEO (renal osteodystrophy): Code(s): N25.0 - Renal osteodystrophy Status: Acute Assessment and Plan: phos was target when checked yesterday. (6) HTN (hypertension): Code(s): I10 - Essential (primary) hypertension Status: Acute Assessment and Plan: Blood pressure is soft. Subjective Date/time seen: 09/28/19 15:19 Interval history: patient became more short of breath and uncomfortable last night. Oxygen requirements increased. She was moved to the intensive care unit. Now getting supportive care. She is tired but not as short of breath now. She is on nasal cannula alone. She is on dialysis. Her blood pressure is still low. We have tried midodrine to help with the blood pressures but still the blood pressures in the 90s and we will be like you to take 1L off. She was seen at 3:00 p.m. Review of Systems Cardiovascular: Cardiovascular: Reports no additional cardiovascular complaints Respiratory: Respiratory: Reports no additional respiratory complaints Gastrointestinal: Gastrointestinal: Reports no additional gastrointestinal complaints Genitourinary: Genitourinary: Reports no additional female genitourinary complaints Exam Narrative: Exam Narrative: Well developed well-nourished in no acute distress Lungs clear Heart regular without rub Abdomen bowel sounds positive soft nontender Extremities no edema Skin no rash Objective Data Vital Signs Vital Signs: Vital Signs - 24 hr 09/27/19 15:45 09/27/19 16:00 09/27/19 19:50 Temperature 37.1 C 36.9 C Pulse Rate 66 61 Respiratory Rate 22 H 20 Blood Pressure 112/57 L 108/55 L Pulse Oximetry 91 97 92 09/27/19 20:00 09/27/19 20:36 09/27/19 23:46 Temperature 37.6 C Pulse Rate 67 61 Respiratory Rate 18 Blood Pressure 115/50 L Pulse Oximetry 93 91 09/28/19 00:00 09/28/19 03:00 09/28/19 03:13 Temperature 37.9 C H Pulse Rate 67 94 71 Respiratory Rate 18 26 H Blood Pressure 113/53 L Pulse Oximetry 92 54 L 09/28/19 03:20 09/28/19 03:30 09/28/19 04:00 Temperature 38.1 C H Pulse Rate 72 65 Respiratory Rate 24 H 99 H Blood Pressure 114/62 125/111 H Pulse Oximetry 94 56 L 22 L 09/28/19 08:00 09/28/19 09:43 09/28/19 09:49 Temperature 38.1 C H 38.1 C H Pulse Rate 66 70 Respiratory Rate 20 Blood Pressure 125/111 H Pulse Oximetry 99 09/28/19
[2019-09-28 17:43] LABS: Glucose Point of Care 79 (65-105)
[2019-09-28 20:45] LABS: Glucose Point of Care 113 (65-105)
[2019-09-28] MEDS: AZITHROMYCIN 250 MG TABLET 500 MG PO (21:19)
[2019-09-29] VITALS (37 sets, daily range): BP systolic 84–140; BP diastolic 37–81; PULSE 58–76; RESP 15–29; TEMP 36–38.7; O2SAT 89–100; BMI 41.8
[2019-09-29] MEDS: GUAIFENESIN/DEXTROMETHORPHAN 10 ML UDC PO ×2 (00:21→06:36)
[2019-09-29] MEDS: ACETAMINOPHEN 325 MG TABLET 650 MG PO (02:44)
[2019-09-29 05:29] LABS: Prothrombin Time 12.5 Seconds (11.1-14.7)
[2019-09-29 05:30] LABS: Partial Thromboplastin Time 42.5 SECONDS (22.3-36.8)
[2019-09-29 05:31] LABS: Basophils Percent Auto 0.3 % (0.2-1.2); Eosinophils Percent Auto 0.3 % (0-4.4); Hematocrit 26.9 % (37.0-47.0); Hemoglobin 8.6 g/dL (12.0-15.0); Immature Granulocyte Absolute 0.03 K/mm3 (0.00-0.031); Immature Granulocyte Percent A 0.8 % (0-0.5); Lymphocytes Absolute Auto 0.59 K/mm3 (0.9-3.2); Lymphocytes Percent Auto 15.6 % (18.3-44.2); Mean Corpuscular Hemoglobin 32.8 pg (26-34); Mean Corpuscular Volume 102.7 fl (80-100); Mean Platelet Volume 10.5 fl (7.4-10.4); Monocytes Absolute Auto 0.2 K/mm3 (0.1-0.6); Monocytes Percent Auto 4.5 % (2.6-8.5); Neutrophils Percent Auto 78.5 % (45.5-73.1); Platelet Count Result 157 k/mm3 (150-375); Red Blood Count 2.62 M/mm3 (4.2-5.4); Red Cell Distribution Width 13.2 % (11.5-14.5); White Blood Count 3.8 K/mm3 (4.5-10.0)
[2019-09-29 05:32] LABS: D Dimer 1.53 ug/mL (<0.48)
[2019-09-29 05:54] LABS: Alanine Aminotransferase 30 U/L (4-35); Albumin Level 3.1 g/dL (3.5-5.1); Alkaline Phosphatase 158 U/L (38-126); Aspartate Amino Transferase 59 U/L (14-36); Bilirubin,Total 0.5 mg/dL (0.2-1.3); Blood Urea Nitrogen 27 mg/dL (7-17); Calcium 7.7 mg/dL (8.4-10.2); Carbon Dioxide 36 mmol/L (22-30); Chloride 93 mmol/L (98-107); Estimated CRCL calculation 14 ml/min; Estimated Glomerular Filt Rate 10; Glucose 108 mg/dL (65-105); Lactate Dehydrogenase 1097 U/L (313-618); Magnesium 1.8 mg/dL (1.6-2.3); Phosphorus 4.9 mg/dL (2.5-4.5); Potassium 4.7 mmol/L (3.4-5.0); Sodium 135 mmol/L (137-145)
[2019-09-29 06:13] LABS: Hepatitis B Surface Antigen Negative (Negative)
[2019-09-29 07:19] LABS: Hepatitis B Surface Anti Res Negative
[2019-09-29 07:40] LABS: CRP 22.6 mg/dL (<1.0)
[2019-09-29 07:58] LABS: Ferritin > 2000.00 ng/mL (11.1-264)
[2019-09-29] MEDS: ALBUTEROL SULFATE (*SP) AEROSOL 1 PUFF 6 PUFF INHALATION (08:00)
--- NOTE | 2019-09-29 09:58 | P.PCNBED_ITS ---
Procedures Intubation: Intubation Date: 09/29/19 Intubation Time: 09:11 A pre- procedural Time-Out was completed immediately before starting the procedure and confirmed: Patient Identification, Site, Procedure, Patient Position and the Availability of Requisite Equipment: Yes Sedative: etomidate Paralytic: rocuronium Laryngoscope: fiber optic video scope Assist device used: fiber optic device ET tube size: 7.5 Tube secured depth (cm): 24 Tube secured location: lips Tube placement confirmation: visualized tube passing through cords, equal breath sounds bilaterally, no breath sounds over epigastrium and confirmation by capnometry Patient tolerated procedure: well Intubation complications: none Additional comments: After obtaining consent from the PATIENT and explaining the rationale for intubation. it was decided to go ahead and intubate the patient. The patient was lying in the supine position. Preoxygenation via BVM was provided for a minimum of 3 minutes. The patient had continuous cardiac as well as pulse oximetry monitoring during the procedure. Rapid sequence induction was provided by administration of Etomidate and Rocuronium . A Glidescope blade 4 was used to directly visualize the vocal cords. A 7.5 mm endotracheal tube was visualized advancing between the cords to a level of 24 cm at the lip. The stylette was then removed. Tube placement was also noted by fogging in the tube, equal and bilateral breath sounds, no sounds over the epigastrium, and end-tidal colorimetric monitoring. The cuff was then inflated with 10 ml of air and the tube secured using a commercially available device. A good pulse oximetry wave form was seen on the monitor throughout the procedure. The patient was then connected to the ventilator at a tidal volume of 300 ml; rate of 24; FiO2 of 100%; and PEEP of 8. A portable chest x-ray has been ordered for placement. Continued sedation will be provided by propofol continuous infusion titrated to a RASS of -2. The patient tolerated the procedure well.
[2019-09-29] MEDS: MIDAZOLAM HCL 50 MG in DEXTROSE 5% 90 ML IV CONT ×2 (10:00→10:25)
--- NOTE | 2019-09-29 10:00 | P.PCNBED_ITS ---
Procedures Central Line Placement: Left IJ: Discussed w/ patient and/or surrogate, the non-emergent placement of a central venous catheter, including its clinical necessity/indication & associated potential risks & complications.: Yes The patient and/or surrogate understand(s) and acknowledge(s) the need to proceed with central venous catheter insertion as an important element of the patient's clinical management.: Yes Emergently Placed - (Given emergent patient conditions, temporal constraints may not have permitted and aforementioned informed consent.): No Central Line Date: 09/29/19 Central Line Time: 09:33 Pre-procedural Time-Out was completed immediately before starting the procedure and confirmed: Patient Identification, Site, Procedure, Patient Position and the Availability of Requisite Equipment.: Yes Patient Position: supine Patient placed on monitor/pulse ox: Yes Provider Prep: mask, sterile gown, sterile gloves, Max. sterile barrier precautions and hand hygiene Central line prep: Chlorhexidine scrub and sterile full body sheet applied Local anesthesia used: lidocaine 1% Amount of anesthesia used (ml): 3 Ultrasound used for placement: Yes Central line lumen inserted: triple Lithuanian: 16 Length (cm): 16 Depth of Insertion (cm): 16 Post procedure: sutured in place, good blood return, all ports aspirated, flushed, capped, tegaderm, hemostatic disc, antimicrobial disc and aseptic technique maintained throughout procedure
[2019-09-29] MEDS: NOREPINEPHRINE 8 MG/D5W 250 ML 8 MG/250 ML BAG 37.5 MG IV CONT (10:24)
[2019-09-29] MEDS: VASOPRESSIN INJ 100 UNITS in DEXTROSE 5% 95 ML IV CONT ×2 (11:00)
[2019-09-29] MEDS: RAPID SEQUENCE INTUBATION KIT 1 EACH ×2 (11:21→17:50)
[2019-09-29] MEDS: HEPARIN SODIUM 5,000 UNITS/ML VIAL 5000 UNITS SUB-Q ×2 (11:32→21:52)
[2019-09-29] MEDS: FUROSEMIDE INJ 100 MG/10 ML VIAL 80 MG IV PUSH (12:08)
[2019-09-29] MEDS: CENTRAL LINE FLUSH 10 ML IV PUSH ×2 (12:11→21:52)
--- NOTE | 2019-09-29 12:14 | PM.PNNEP ---
Progress Note: A&P Assessment and Plan (1) ESRD on hemodialysis: Code(s): N18.6 - End stage renal disease; Z99.2 - Dependence on renal dialysis Status: Acute Assessment and Plan: The patient has end-stage kidneys. She had dialysis yesterday. They were unable to get off more than just about a L of fluid. Today the chest x-ray is much worsened oxygen requirements are much higher. I have asked dialysis to come and do a dry ultrafiltration. Perhaps this will enable us to remove more fluid. In the meantime she has gotten 80 mg of Lasix IV. If she responds to this is all will continue this. Discussed at length with Dr. Issa (2) Bilateral pneumonia: Qualifiers: Lung location: lower lobe of lung Pneumonia type: due to unspecified organism Qualified Code(s): J18.9 - Pneumonia, unspecified organism Code(s): J18.9 - Pneumonia, unspecified organism Status: Acute Assessment and Plan: The patient has pneumonia. COVID-19 test was positive. She is developing ARDS. (3) Diabetes mellitus: Qualifiers: Diabetes mellitus type: type 2 Diabetes mellitus assisted insulin use: with assisted use Diabetes mellitus complication status: with kidney complications Diabetes mellitus complication detail: with chronic kidney disease Chronic kidney disease stage: on chronic dialysis Qualified Code(s): E11.22 - Type 2 diabetes mellitus with diabetic chronic kidney disease; N18.6 - End stage renal disease; Z79.4 - [facility] (current) use of insulin; Z99.2 - Dependence on renal dialysis Code(s): E11.9 - Type 2 diabetes mellitus without complications Status: Acute Assessment and Plan: She has diabetes. On Accu-Cheks and sliding-scale insulin Sugars are doing well (4) Erythropoietin deficiency anemia: Code(s): D63.1 - Anemia in chronic kidney disease Status: Acute Assessment and Plan: Hemoglobin is stable in the 8. Continue Epogen administration. (5) KEO (renal osteodystrophy): Code(s): N25.0 - Renal osteodystrophy Status: Acute Assessment and Plan: phos was target when checked (6) HTN (hypertension): Code(s): I10 - Essential (primary) hypertension Status: Acute Assessment and Plan: Blood pressure is okay right now but is on 20 mics of Levophed. Subjective Date/time seen: 09/29/19 12:14 Interval history: patient became more short of breath more short of breath still last night. She and the having to be intubated. She also developed a pneumothorax. Now she has a chest tube. Blood pressure is low. She was on vasopressin and norepinephrine at 1st but once the chest tube went in the vasopressin was able to be weaned. Chest x-ray is much worse. Review of Systems Cardiovascular: Cardiovascular: Reports no additional cardiovascular complaints Respiratory: Respiratory: Reports no additional respiratory complaints Gastrointestinal: Gastrointestinal: Reports no additional gastrointestinal complaints Genitourinary: Genitourinary: Reports no additional female genitourinary complaints Exam Narrative: Exam Narrative: Well developed well-nourished in no acute distress Lungs course Heart regular without rub Abdomen bowel sounds positive soft nontender Extremities trace edema Skin no rash or subcu nodules Objective Data Vital Signs Vital Signs: Vital Signs - 24 hr 09/28/19 13:18 09/28/19 13:28 09/28/19 13:30 Temperature 35.9 C L Pulse Rate 58 L 56 L 56 L Respiratory Rate 24 H Blood Pressure 86/37 L 97/49 L 98/40 L Pulse Oximetry 96 09/28/19 13:45 09/28/19 14:00 09/28/19 14:15 Temperature Pulse Rate 56 L 57 L 62 Respiratory Rate 18 Blood Pressure 93/48 L 95/58 L 90/49 L Pulse Oximetry 97 09/28/19 14:30 09/28/19 14:45 09/28/19 15:00 Temperature Pulse Rate 59 L 59 L 60 Respiratory Rate Blood Pressure 102/31 L 98/54 L 96/51 L Pulse Oxim
[2019-09-29] MEDS: INSULIN ASPART (*BKC) 100 UNITS/ML SUB-Q ×3 (12:22→23:41)
[2019-09-29 12:29] LABS: Glucose Point of Care 207 (65-105)
[2019-09-29 12:29] LABS: Glucose Point of Care 116 (65-105)
--- NOTE | 2019-09-29 12:50 | WPDINTPN ---
Progress Note: A&P Assessment and Plan (1) Acute respiratory failure with hypoxia: Code(s): J96.01 - Acute respiratory failure with hypoxia Status: Acute Assessment and Plan: acute respiratory failure most likely related to bilateral infiltrates secondary to COVID-19 viral pneumonia. - patient desaturated and was intubated on 09/29/2019, post intubation patient had a pneumothorax on the right side, chest tube was inserted.. - Currently on CMV mode of ventilation, low tidal volume, peep of 12 with adequate O2 sats, will try to wean the PEEP down - continue ceftriaxone and azithromycin - COVID-19 POSITIVE, will start hydroxychloroquine - discuss with Nephrology, dialyzed with removal of fluid - patient was given Lasix 80 mg IV x1, if she makes adequate urine with started a Bumex infusion - patient should be dialyzed with removal of fluid today - chest x-ray shows worsening bilateral infiltrates (2) COVID-19 virus infection: Code(s): U07.1 - COVID-19 Status: Acute Assessment and Plan: patient presented with fevers, chills, cough. Tested positive for COVID-19 - elevated LDH, CRP, ferritin, D-dimer, procalcitonin pending - viral pneumonia (3) Bilateral pneumonia: Qualifiers: Lung location: lower lobe of lung Pneumonia type: due to unspecified organism Qualified Code(s): J18.9 - Pneumonia, unspecified organism Code(s): J18.9 - Pneumonia, unspecified organism Status: Acute Assessment and Plan: bilateral pneumonia, treatment as above (4) Diabetes mellitus: Qualifiers: Chronic kidney disease stage: on chronic dialysis Diabetes mellitus complication detail: with chronic kidney disease Diabetes mellitus complication status: with kidney complications Diabetes mellitus assisted insulin use: with moth exterminator use Diabetes mellitus type: type 2 Qualified Code(s): E11.22 - Type 2 diabetes mellitus with diabetic chronic kidney disease; N18.6 - End stage renal disease; Z79.4 - rat exterminator (current) use of insulin; Z99.2 - Dependence on renal dialysis Code(s): E11.9 - Type 2 diabetes mellitus without complications Status: Acute Assessment and Plan: will continue sliding scale insulin Accu-Cheks since she is intubated - will discontinue Lantus at this time (5) ESRD on hemodialysis: Code(s): N18.6 - End stage renal disease; Z99.2 - Dependence on renal dialysis Status: Acute Assessment and Plan: patient has a history of end-stage renal disease on hemodialysis, - patient was given Lasix 80 mg IV x1 this morning, if she continues to make urine will place her on a Bumex infusion. Discussed with Nephrology and was agreeable - nephrology also trying to remove fluid with dialysis today keeping in mind that the patient is on vasopressors and that may not be possible. (6) HTN (hypertension): Code(s): I10 - Essential (primary) hypertension Status: Acute Assessment and Plan: Hold all antihypertensives at this time as patient on vasopressors (7) DVT prophylaxis: Code(s): Z29.9 - Encounter for prophylactic measures, unspecified Status: Acute Assessment and Plan: heparin subcu (8) Shock: Code(s): R57.9 - Shock, unspecified Status: Acute Assessment and Plan: likely related to bilateral miguel pneumonia, COVID-19, pneumothorax, positive pressure ventilation, sedation - continue Levophed and vasopressin to maintain mean arterial pressure is greater than 65 mmHg. - Blood cultures and sputum culture have been negative - will check lactic acid Additional Plan discussed with Rosalia, patient's daughter and updated with her condition and plan of care. I answered all questions. She is aware that patient will be started on hydroxychloroquine and she was agreeable to that code status: DNR Critical care time spent: 54 minutes condition: guarded Due
--- NOTE | 2019-09-29 12:57 | PCDIET ---
Patient now intubated. If able to initiate enteral nutrition in next 24-48 hours, recommend Nepro at goal of 45mL/hr x 22 hours/day for total of 1782kcal, 80g protein and 719mL free water. Recommend minimum water flush for tube patency. Will follow up as previously scheduled.
--- NOTE | 2019-09-29 13:05 | PM.IMPN ---
Progress Note: A&P Assessment and Plan (1) Acute respiratory failure with hypoxia: Code(s): J96.01 - Acute respiratory failure with hypoxia Status: Acute Assessment and Plan: Result of pneumonia. Acute worsening with transfer to ICU on 09/28/2019. Now intubated this morning and sedated continued worsening respiratory failure. Chest x-ray reviewed this morning with worsened airspace disease. IV Lasix given after discussion between construction tech yacht builder. Continue to monitor closely. Patient is now DNR. (2) Bilateral pneumonia: Qualifiers: Lung location: lower lobe of lung Pneumonia type: due to unspecified organism Qualified Code(s): J18.9 - Pneumonia, unspecified organism Code(s): J18.9 - Pneumonia, unspecified organism Status: Acute Assessment and Plan: Chest xray on admission with bilateral indistinct reticulation, some ground glass opacities. Given fever and cough, clinically consistent with pneumonia versus pulmonary edema. COVID-19 testing initiated through [facility] with results now available and positive. Influenza testing negative. Will continue IV ceftriaxone and azithromycin. Sputum culture not performed based on Gram stain. Blood cultures remain negative. Group A Strep culture test negative. (3) COVID-19 virus infection: Code(s): U07.1 - COVID-19 Status: Acute Assessment and Plan: COVID-19 testing positive. Continue treatment of pneumonia, acute respiratory failure as noted above. Ferritin, LDH and CRP all elevated. Hydroxychloroquine started today with worsened respiratory status requiring intubation. Continue to monitor. (4) Pneumothorax: Qualifiers: Pneumothorax type: unspecified pneumothorax Qualified Code(s): J93.9 - Pneumothorax, unspecified Code(s): J93.9 - Pneumothorax, unspecified Status: Acute Assessment and Plan: Complete right pneumothorax noted after intubation general surgery consult with chest tube now place. Management per General surgery. (5) Shock: Code(s): R57.9 - Shock, unspecified Status: Acute Assessment and Plan: Now also present. Most likely result of for moving to 2 COVID-19. Currently on norepinephrine. Blood pressure reviewed On 09/29/2019 and now stable. Telemetry reviewed on 09/29/2019 sinus rhythm. (6) Diabetes mellitus: Qualifiers: Chronic kidney disease stage: on chronic dialysis Diabetes mellitus complication detail: with chronic kidney disease Diabetes mellitus complication status: with kidney complications Diabetes mellitus halfway insulin use: with terminal manager use Diabetes mellitus type: type 2 Qualified Code(s): E11.22 - Type 2 diabetes mellitus with diabetic chronic kidney disease; N18.6 - End stage renal disease; Z79.4 - termite control servicer (current) use of insulin; Z99.2 - Dependence on renal dialysis Code(s): E11.9 - Type 2 diabetes mellitus without complications Status: Acute Assessment and Plan: No further hypoglycemia. Glucose reviewed on 09/29/2019 and stable. Lantus discontinued with intubation. Continue sliding scale insulin. Will monitor. (7) CHF (congestive heart failure): Qualifiers: Heart failure chronicity: chronic Heart failure type: unspecified Qualified Code(s): I50.9 - Heart failure, unspecified Code(s): I50.9 - Heart failure, unspecified Status: Acute Assessment and Plan: Echocardiogram December 2018 showing EF 55% with DD Grade I, hypokinetic segments, moderate MR and severe pulmonary hypertension. IV Lasix given today with worsened respiratory status. Oral Bumex on hold. Continue to monitor. (8) ESRD on hemodialysis: Code(s): N18.6 - End stage renal disease; Z99.2 - Dependence on renal dialysis Status: Acute Assessment and Plan: Nephrology consulted and appreciate input. Per Nephrology, dry ultrafiltration today. IV Lasix of given. Continue to monito
--- NOTE | 2019-09-29 14:07 | P.OP_ITS ---
Procedure Note - Detailed Date of procedure: 09/29/19 Pre-op diagnosis: Fever and chills Complete right pneumothorax Post-op diagnosis: same Procedure performed: Attempted placement of 28 Trinidadian right chest tube, placement of 32 Trinidadian right chest tube Description of procedure: Patient was in ICU on a mechanical ventilator but having low oxygen saturations. The right chest was prepped and draped. The patient was a very large woman. She was heavily sedated on the ventilator. The anterior upper right chest was prepped and draped in sterile fashion. At the area of the 5th rib in the midclavicular line, an incision was made. A blunt tip clamp was used to dissect through the subcutaneous fat and down to the ribs. Going just over the 4th or 5th rib anteriorly, I was able to pass the clamp into the right chest. A rashid of air came back. A 28 Trinidadian trocar chest tube was then passed through the opening and into the right chest. I listened for a rashid of air but there was a lot of activity in the room and I couldn't definitely hear that. I pulled the tube back and then advanced it again. It seemed to be in good position aimed towards the apex of the right lung. I sutured it in place with 2 0 silk. 4 x 4 gauze and an occlusive tape dressing was applied. Unfortunately the patient's oxygenation did not improve. Portable chest x-ray was expeditiously performed. This showed the chest tube in the deep subcutaneous tissue and not in the right chest. The right chest dressing was removed. The suture was cut and the 28 Trinidadian chest tube was removed. The patient was being bagged. Fresh prep with sterile drapes and a new chest tube set up was opened and initiated. A 32 Trin[place]adian trocar chest tube was then passed into the apex of the right pleural space. This time a good rashid of air could be heard. The chest tube was connected to the Pleur-Evac suction. Oxygenation improved very quickly. The new chest tube was sutured to the skin with 2 0 silk. A sterile occlusive dressing was again placed. The chest tube was placed to 20 cm water continuous Pleur-Evac suction. Postprocedure chest x-ray showed the chest tube to be in good position with near complete resolution of the pneumothorax. The patient's oxygenation was much improved as well. She seemed to tolerate the procedure well. No complications were noted. Anesthesia: other (Patient heavily sedated and given narcotics on ventilator) Surgeon: Bud Park MD Estimated blood loss (mL): 5 Drains: Yes (Right chest tube) Packing: No Pathology: none sent Complications: None Condition: critical Disposition: no change Findings: Right chest tube in the anterior apical right chest with nearly resolved right pneumothorax.
[2019-09-29 14:14] LABS: Alveolar/Arterial O2 Gradient 615.4 mmHg; Base Excess ABG 3.2 mEq/l (+/-2.0); Carboxyhemoglobin 0.3 % THb (0-2.0); Fractional Inspired Oxygen 100 %; HCO3 ABG 27.9 mEq/l (22.0-26.0); Methemoglobin ABG 0.3 %THb (0-1.5); Oxygen Saturation ABG 89.1 % (95.0-100.0); Oxyhemoglobin 86.3 % THb (90.0-100.0); PCO2 ABG 43.1 mmHg (35.0-45.0); PO2 ABG 54.5 mmHg (80.0-100.0); PO2 FiO2 Ratio Arterial Blood 0.55 %; Reduced Hemoglobin 13.1 %THb (0-5.0); Total Hemoglobin 10.7 g/dL (12.0-18.0); pH ABG 7.429 (7.350-7.450)
[2019-09-29 14:15] LABS: Device VENTILATOR; Modified Allen's Test Pass; Site Drawn LEFT RADIAL
[2019-09-29 14:16] LABS: Arterial Blood Gas PEEP 12 cmH2O; Arterial Blood Gas Tidal Volume 300 ml; Arterial Blood Gas Vent Mode CMV; Arterial Blood Gas Ventilator rate 24 /MIN
[2019-09-29 14:47] LABS: Lactic Acid Reflex 1.2 mmol/L (0.7-2.1)
[2019-09-29] MEDS: NOREPINEPHRINE 8 MG/D5W 250 ML 8 MG/250 ML BAG 28.1 MG IV CONT (16:44)
[2019-09-29] MEDS: PANTOPRAZOLE SODIUM IV 40 MG VIAL IV PUSH (16:45)
[2019-09-29 16:59] LABS: Glucose Point of Care 216 (65-105)
[2019-09-29] MEDS: methylPREDNISolone SOD SUCC 40 MG VIAL IV PUSH ×2 (17:50→23:40)
[2019-09-29] MEDS: ALBUTEROL SULFATE NEB 2.5 MG/0.5 ML INH 5 MG INHALATION (20:27)
[2019-09-29] MEDS: IPRATROPIUM BR 0.02% INH SOLN 0.5 MG/2.5 ML VIAL INHALATION (20:27)
[2019-09-29] MEDS: MIDAZOLAM HCL 50 MG in DEXTROSE 5% 90 ML 12 MG IV CONT (22:21)
[2019-09-29] MEDS: NOREPINEPHRINE 8 MG/D5W 250 ML 8 MG/250 ML BAG 31.9 MG IV CONT (23:40)
[2019-09-29 23:56] LABS: Glucose Point of Care 335 (65-105)
[2019-09-30] VITALS (18 sets, daily range): BP systolic 89–128; BP diastolic 43–97; PULSE 60–78; RESP 26–32; TEMP 36.8–38; O2SAT 92–100
[2019-09-30] MEDS: IPRATROPIUM BR 0.02% INH SOLN 0.5 MG/2.5 ML VIAL INHALATION (01:26)
[2019-09-30] MEDS: ALBUTEROL SULFATE NEB 2.5 MG/0.5 ML INH 5 MG INHALATION (01:26)
[2019-09-30] MEDS: EPOPROSTENOL SODIUM 0.5 MG VIAL 1 MG INHALATION ×2 (03:10→08:49)
[2019-09-30] MEDS: ROCURONIUM BROMIDE 50 MG/5 ML VIAL IV PUSH (03:29)
[2019-09-30] MEDS: CENTRAL LINE FLUSH 10 ML IV PUSH (04:18)
[2019-09-30 05:14] LABS: Basophils Percent Auto 0.1 % (0.2-1.2); Hematocrit 27.4 % (37.0-47.0); Immature Granulocyte Absolute 0.08 K/mm3 (0.00-0.031); Immature Granulocyte Percent A 0.9 % (0-0.5); Lymphocytes Absolute Auto 0.46 K/mm3 (0.9-3.2); Lymphocytes Percent Auto 5.4 % (18.3-44.2); Mean Corpuscular HGB Conc 32.8 g/dl (32-36); Mean Corpuscular Hemoglobin 32.5 pg (26-34); Mean Corpuscular Volume 98.9 fl (80-100); Mean Platelet Volume 10.1 fl (7.4-10.4); Monocytes Absolute Auto 0.2 K/mm3 (0.1-0.6); Monocytes Percent Auto 2.4 % (2.6-8.5); Neutrophils Absolute Auto 7.7 K/mm3 (1.3-6.7); Neutrophils Percent Auto 91.2 % (45.5-73.1); Nucleated Red Blood Cells Perc 0.4 % (0.0-0.2); Platelet Count Result 236 k/mm3 (150-375); Red Blood Count 2.77 M/mm3 (4.2-5.4); Red Cell Distribution Width 13.2 % (11.5-14.5); White Blood Count 8.5 K/mm3 (4.5-10.0)
[2019-09-30] MEDS: methylPREDNISolone SOD SUCC 40 MG VIAL IV PUSH ×2 (05:17→11:48)
[2019-09-30 05:26] LABS: INR 1.2
[2019-09-30 05:27] LABS: Partial Thromboplastin Time 39.1 SECONDS (22.3-36.8)
[2019-09-30 05:29] LABS: D Dimer 3.73 ug/mL (<0.48)
[2019-09-30 05:49] LABS: Alanine Aminotransferase 384 U/L (4-35); Albumin Level 3.3 g/dL (3.5-5.1); Alkaline Phosphatase 251 U/L (38-126); Aspartate Amino Transferase 642 U/L (14-36); Bilirubin,Total 0.9 mg/dL (0.2-1.3); Blood Urea Nitrogen 46 mg/dL (7-17); CRP > 9.0 mg/dL (<1.0); Calcium 8.3 mg/dL (8.4-10.2); Carbon Dioxide 27 mmol/L (22-30); Chloride 89 mmol/L (98-107); Estimated CRCL calculation 9 ml/min; Estimated Glomerular Filt Rate 6; Glucose 387 mg/dL (65-105); Magnesium 1.9 mg/dL (1.6-2.3); Potassium 5.5 mmol/L (3.4-5.0); Sodium 130 mmol/L (137-145)
[2019-09-30 06:10] LABS: Lactate Dehydrogenase 3290 U/L (313-618)
[2019-09-30] MEDS: INSULIN ASPART (*BKC) 100 UNITS/ML SUB-Q ×2 (06:14→11:50)
[2019-09-30] MEDS: INSULIN DETEMIR 100 UNITS/ML 7 UNITS SUB-Q (07:58)
[2019-09-30] MEDS: HEPARIN SODIUM 5,000 UNITS/ML VIAL 5000 UNITS SUB-Q (07:59)
[2019-09-30] MEDS: PANTOPRAZOLE SODIUM IV 40 MG VIAL IV PUSH (07:59)
[2019-09-30] MEDS: MIDAZOLAM HCL 50 MG in DEXTROSE 5% 90 ML 12 MG IV CONT (08:46)
[2019-09-30 09:32] LABS: Alveolar/Arterial O2 Gradient 614.5 mmHg; Base Excess ABG -1.3 mEq/l (+/-2.0); Carboxyhemoglobin 0.3 % THb (0-2.0); Fractional Inspired Oxygen 100 %; HCO3 ABG 21.5 mEq/l (22.0-26.0); Methemoglobin ABG 0.2 %THb (0-1.5); Oxygen Content ABG 17.5 %vol (16.0-22.0); Oxygen Saturation ABG 94.7 % (95.0-100.0); Oxyhemoglobin 91.5 % THb (90.0-100.0); PCO2 ABG 30.6 mmHg (35.0-45.0); PO2 ABG 67.9 mmHg (80.0-100.0); PO2 FiO2 Ratio Arterial Blood 0.68 %; Total Hemoglobin 13.6 g/dL (12.0-18.0); pH ABG 7.464 (7.350-7.450)
[2019-09-30 09:33] LABS: Device VENTILATOR; Site Drawn ARTLINE
[2019-09-30 09:34] LABS: Arterial Blood Gas PEEP 18 cmH2O; Arterial Blood Gas Tidal Volume 340 ml; Arterial Blood Gas Vent Mode CMV; Arterial Blood Gas Ventilator rate 32 /MIN
[2019-09-30] MEDS: NOREPINEPHRINE 8 MG/D5W 250 ML 8 MG/250 ML BAG 15 MG IV CONT (10:15)
--- NOTE | 2019-09-30 10:40 | PM.PNNEP ---
Progress Note: A&P Assessment and Plan (1) ESRD on hemodialysis: Code(s): N18.6 - End stage renal disease; Z99.2 - Dependence on renal dialysis Status: Acute Assessment and Plan: The patient has end-stage kidneys. She had dry ultrafiltration yesterday. They removed 1.6L of fluid. She made about 200cc of urine yesterday. Will get another treatment today. This will be the regular treatment and will still try to take more fluid off. Will try loop diuretics again. Long discussion with Dr. Issa (2) Bilateral pneumonia: Qualifiers: Lung location: lower lobe of lung Pneumonia type: due to unspecified organism Qualified Code(s): J18.9 - Pneumonia, unspecified organism Code(s): J18.9 - Pneumonia, unspecified organism Status: Acute Assessment and Plan: The patient has pneumonia. COVID-19 test was positive. She is developing ARDS. She has a right pneumothorax. She has 2 chest tubes in. On Plaquenil and Zithromax and ceftriaxone. (3) Diabetes mellitus: Qualifiers: Diabetes mellitus type: type 2 Diabetes mellitus termite treater helper insulin use: with group home use Diabetes mellitus complication status: with kidney complications Diabetes mellitus complication detail: with chronic kidney disease Chronic kidney disease stage: on chronic dialysis Qualified Code(s): E11.22 - Type 2 diabetes mellitus with diabetic chronic kidney disease; N18.6 - End stage renal disease; Z79.4 - retirement (current) use of insulin; Z99.2 - Dependence on renal dialysis Code(s): E11.9 - Type 2 diabetes mellitus without complications Status: Acute Assessment and Plan: She has diabetes. On Accu-Cheks and sliding-scale insulin Sugars are doing well (4) Erythropoietin deficiency anemia: Code(s): D63.1 - Anemia in chronic kidney disease Status: Acute Assessment and Plan: Hemoglobin is stable between 8 and 9. Continue Epogen administration. (5) KEO (renal osteodystrophy): Code(s): N25.0 - Renal osteodystrophy Status: Acute Assessment and Plan: phos was target when checked (6) HTN (hypertension): Code(s): I10 - Essential (primary) hypertension Status: Acute Assessment and Plan: Not an issue currently (7) Shock: Code(s): R57.9 - Shock, unspecified Status: Acute Assessment and Plan: Due to COVID and the systemic inflammatory response. She is on norepinephrine 12 mics. This is lower than yesterday. She is on no vasopressin any more. Subjective Date/time seen: 09/30/19 10:40 Interval history: The patient is sedated and on the ventilator. Overnight she has had a continual leak so a 2nd chest tube was just placed. Review of Systems Cardiovascular: Cardiovascular: Reports no additional cardiovascular complaints Respiratory: Respiratory: Reports no additional respiratory complaints Gastrointestinal: Gastrointestinal: Reports no additional gastrointestinal complaints Genitourinary: Genitourinary: Reports no additional female genitourinary complaints Exam Narrative: Exam Narrative: Well developed well-nourished in no acute distress Lungs course Heart regular without rub or gallop Abdomen bowel sounds positive soft nontender Extremities trace edema and no cyanosis Skin no rash Objective Data Vital Signs Vital Signs: Vital Signs - 24 hr 09/29/19 12:00 09/29/19 12:03 09/29/19 13:55 Temperature 38.2 C H Pulse Rate 67 67 72 Respiratory Rate 25 H Blood Pressure 120/37 L Pulse Oximetry 93 94 09/29/19 14:00 09/29/19 14:31 09/29/19 16:00 Temperature Pulse Rate 72 73 73 Respiratory Rate 25 H Blood Pressure 133/50 L Pulse Oximetry 92 09/29/19 16:31 09/29/19 17:30 09/29/19 18:00 Temperature 38.7 C H Pulse Rate 73 72 71 Respiratory Rate 27 H Blood Pressure 121/46 L Pulse Oximetry 92 90 09/29/19 18:02 09/29/19 19:15
--- NOTE | 2019-09-30 10:56 | WPDINTPN ---
Progress Note: A&P Assessment and Plan (1) Acute respiratory failure with hypoxia: Code(s): J96.01 - Acute respiratory failure with hypoxia Status: Acute Assessment and Plan: acute respiratory failure most likely related to bilateral infiltrates secondary to COVID-19 viral pneumonia. - patient desaturated and was intubated on 09/29/2019, post intubation patient had a pneumothorax on the right side, chest tube was inserted. - Currently on CMV mode of ventilation, low tidal volume, peep of 16 with adequate O2 sats, will try to wean the PEEP down, check ABG - continue ceftriaxone and azithromycin - COVID-19 POSITIVE, started on hydroxychloroquine 09/29/2019 - discuss with Nephrology, dialysis today again - chest x-ray and ABG's reviewed. - Transferring pt to [place], she has been accepted - patient also on Solu-Medrol (2) COVID-19 virus infection: Code(s): U07.1 - COVID-19 Status: Acute Assessment and Plan: patient presented with fevers, chills, cough. Tested positive for COVID-19 - elevated LDH, CRP, ferritin, D-dimer, procalcitonin pending - viral pneumonia (3) Bilateral pneumonia: Qualifiers: Lung location: lower lobe of lung Pneumonia type: due to unspecified organism Qualified Code(s): J18.9 - Pneumonia, unspecified organism Code(s): J18.9 - Pneumonia, unspecified organism Status: Acute Assessment and Plan: bilateral pneumonia, treatment as above (4) Diabetes mellitus: Qualifiers: Chronic kidney disease stage: on chronic dialysis Diabetes mellitus complication detail: with chronic kidney disease Diabetes mellitus complication status: with kidney complications Diabetes mellitus halfway insulin use: with terminal worker use Diabetes mellitus type: type 2 Qualified Code(s): E11.22 - Type 2 diabetes mellitus with diabetic chronic kidney disease; N18.6 - End stage renal disease; Z79.4 - terminal worker (current) use of insulin; Z99.2 - Dependence on renal dialysis Code(s): E11.9 - Type 2 diabetes mellitus without complications Status: Chronic Assessment and Plan: will continue sliding scale insulin Accu-Cheks since she is intubated - added levemir (5) ESRD on hemodialysis: Code(s): N18.6 - End stage renal disease; Z99.2 - Dependence on renal dialysis Status: Chronic Assessment and Plan: patient has a history of end-stage renal disease on hemodialysis, - patient has been started on Bumex per Nephrology. - UF On 09/29/2019 with removal of 1900 mL of fluid. - Discussed with Nephrology, will dialyze again today (6) HTN (hypertension): Code(s): I10 - Essential (primary) hypertension Status: Acute Assessment and Plan: Hold all antihypertensives at this time as patient on vasopressors (7) DVT prophylaxis: Code(s): Z29.9 - Encounter for prophylactic measures, unspecified Status: Acute Assessment and Plan: heparin subcu (8) Shock: Code(s): R57.9 - Shock, unspecified Status: Acute Assessment and Plan: likely related to bilateral viral pneumonia, COVID-19, pneumothorax, positive pressure ventilation, sedation - continue Levophed to maintain mean arterial pressure is greater than 65 mmHg. OFF vasopressin - Blood cultures and sputum culture have been negative - lactic acid normal (9) Pneumothorax: Qualifiers: Pneumothorax type: unspecified pneumothorax Qualified Code(s): J93.9 - Pneumothorax, unspecified Code(s): J93.9 - Pneumothorax, unspecified Status: Acute Assessment and Plan: patient developed spontaneous right-sided pneumotorax. - Surgery placed right-sided chest tube on 09/29/2019 - repeat chest x-ray this morning shows pneumothorax, surgery placed a 2nd chest tube on the right side Additional Plan discussed with Rosalia, patient's daughter and updated with her condition and plan of
--- NOTE | 2019-09-30 11:02 | P.OP_ITS ---
Procedure Note - Detailed Date of procedure: 09/30/19 Pre-op diagnosis: ARDS, recurrent right pneumothorax ARDS, COVID-19, recurrent right pneumothorax Post-op diagnosis: same Procedure performed: placement of a 2nd right chest tube Description of procedure: the patient is intubated sedated in in the ICU as she was yesterday. All the right chest tube tape and dressings were removed. Full sterile precautions as well as COVID-19 precautions were used. The anterior right chest and supraclavicular areas were prepped thoroughly with chlorhexidine. Incision was made just below and medial to the previous existing chest tube. Then a large Peon clamp was used to tunnel up to the 4th rib. A 32 Swedish trocar argyle chest tube was then passed through this tunnel and into the right chest. I advanced the chest tube towards the apex of the lung. It was advanced to the end of the chest tube markings passing it very far into the right upper chest. I could hair air coming through the chest tube consistent w ith intra thoracic placement. The chest tube was placed to Pleur-Evac suction. The chest tube was sutured to the skin with 0 silk suture. 4 x 4 gauze and 2 in silk tape was used to place sterile occlusive dressings over both chest tube sites. The patient tolerated the procedure well. Both chest tubes are showing pleural leak. Postprocedure chest x-ray shows the lung to be fully expanded although interstitial infiltrates consistent with ARDS are of course still present. Anesthesia: none ( Patient receiving sedation and fentanyl while on ventilator.) Surgeon: Bud Park MD Estimated blood loss (mL): 2 Drains: Yes ( Second right tube thoracostomy) Packing: No Pathology: none sent Complications: None Condition: critical Disposition: no change Findings: both chest tubes in the right chest. No pneumothorax on chest x-ray following the procedure. Significant pleural leak from each chest tube noted.
--- NOTE | 2019-09-30 11:08 | PM.PNGS ---
Progress Note: A&P Assessment and Plan (1) Pneumothorax: Qualifiers: Pneumothorax type: unspecified pneumothorax Qualified Code(s): J93.9 - Pneumothorax, unspecified Code(s): J93.9 - Pneumothorax, unspecified Status: Acute Assessment and Plan: large pleural leak noted from right chest tube. Recurrent apical pneumothorax noted. Will place a 2nd right chest tube. Hopefully this will facilitate full lung reexpansion. Will proceed with this this morning. (2) Bilateral pneumonia: Qualifiers: Lung location: lower lobe of lung Pneumonia type: due to unspecified organism Qualified Code(s): J18.9 - Pneumonia, unspecified organism Code(s): J18.9 - Pneumonia, unspecified organism Status: Acute (3) Acute respiratory failure with hypoxia: Code(s): J96.01 - Acute respiratory failure with hypoxia Status: Acute (4) COVID-19 virus infection: Code(s): U07.1 - COVID-19 Status: Acute (5) ESRD on hemodialysis: Code(s): N18.6 - End stage renal disease; Z99.2 - Dependence on renal dialysis Status: Chronic (6) Diabetes mellitus: Qualifiers: Diabetes mellitus type: type 2 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 insulin use: with termite control service representative use Diabetes mellitus complication status: with kidney complications Diabetes mellitus complication detail: with chronic kidney disease Chronic kidney disease stage: on chronic dialysis Qualified Code(s): E11.22 - Type 2 diabetes mellitus with diabetic chronic kidney disease; N18.6 - End stage renal disease; Z79.4 - watermaster (current) use of insulin; Z99.2 - Dependence on renal dialysis Code(s): E11.9 - Type 2 diabetes mellitus without complications Status: Chronic Subjective Subjective Date/Time Seen: 09/30/19 11:08 Patient reports: other ( Unable to give any subjective findings) Interval history: Patient remains intubated sedated and on mechanical ventilator. This morning's chest x-ray showed recurrent apical pneumothorax with large pleural oral leak in the right chest. Discussed with Dr. Issa, dental floss packer. Review of Systems Review of Systems: ROS unobtainable: Yes unobtainable due to endotracheal tube Exam Const: Nutritional Appearance: obese Orientation/consciousness: Other orientation findings ( fully sedated on ventilator) Chest: Chest palpation & inspection: abnormal inspection of the chest ( right chest tube in expected position, large pleural leak.) Resp: Auscultation: crackles and rhonchi Objective Data Vital Signs Vital Signs: Vital Signs - 24 hr 09/29/19 12:00 09/29/19 12:03 09/29/19 13:55 Temperature 38.2 C H Pulse Rate 67 67 72 Respiratory Rate 25 H Blood Pressure 120/37 L Pulse Oximetry 93 94 09/29/19 14:00 09/29/19 14:31 09/29/19 16:00 Temperature Pulse Rate 72 73 73 Respiratory Rate 25 H Blood Pressure 133/50 L Pulse Oximetry 92 09/29/19 16:31 09/29/19 17:30 09/29/19 18:00 Temperature 38.7 C H Pulse Rate 73 72 71 Respiratory Rate 27 H Blood Pressure 121/46 L Pulse Oximetry 92 90 09/29/19 18:02 09/29/19 19:15 09/29/19 19:30 Temperature Pulse Rate 71 66 63 Respiratory Rate 28 H Blood Pressure 104/46 L 117/46 L 99/47 L Pulse Oximetry 100 09/29/19 19:45 09/29/19 20:00 09/29/19 20:15 Temperature 38.0 C H Pulse Rate 61 65 58 L Respiratory Rate 28 H Blood Pressure 99/45 L 92/47 L 84/47 L Pulse Oximetry 100 09/29/19 20:20 09/29/19 20:30 09/29/19 20:40 Temperature Pulse Rate 64 65 64 Respiratory Rate 29 H 29 H Blood Pressure 85/68 L Pulse Oximetry 100 09/29/19 20:45 09/29/19 21:00 09/29/19 21:15 Temperature Pulse Rate 73 70 70 Respiratory Rate Blood Pressure 96/78 L 101/68 110/60 Pulse Oximetry 09/29/19 22:00 09/29/19 22:19 09/29/19 22:38 Temperature 36.6 C 36.3 C L Pulse Rate 66 66 62 Respiratory Rate 28 H 20 20 Blood Pressure 94/66 L 114/47 L 110/74 Pulse
[2019-09-30 11:43] LABS: Ferritin > 2000.00 ng/mL (11.1-264)
[2019-09-30 11:49] LABS: Glucose Point of Care 379 (65-105)
--- NOTE | 2019-09-30 11:53 | P.PCNBED_ITS ---
Procedures Arterial Line: Arterial Line Date: 09/30/19 Arterial Line Time: 09:12 Discussed with the patient/family/POA, the non-emergent placement of an arterial catheter, including its clinical necessity/indication and associated potential risks and complications: Yes Patient/family/POA and/or understand(s) and acknowledge(s) the need to proceed with the arterial catheter insertion as an important element of the patient's clinical management: Yes Perfomed Emergently - Given emergent patient conditions, temporal constraints may have precluded informed consent: No A pre-procedural Time-Out was completed immediately before starting the procedure and confirmed: Patient Identification, Site, Procedure, Patient Position and the Availability of Requisite Equipment: Yes Patient Position: supine Sap Bw Consultant Prep: sterile gown, sterile gloves and mask Site: left and radial Site Prep: chlorhexidine and sterile drape Technique used: ultrasound-guided Size (Gauge): 16 Length: 4.4 cm Closure/Dressing: suture, antimicrobial disc and tegaderm Patient tolerated procedure: well Complications: none
[2019-09-30 12:26] LABS: Alveolar/Arterial O2 Gradient 562.5 mmHg; Base Excess ABG 1.3 mEq/l (+/-2.0); Carboxyhemoglobin 0.2 % THb (0-2.0); Fractional Inspired Oxygen 100 %; HCO3 ABG 24.5 mEq/l (22.0-26.0); Methemoglobin ABG 0.2 %THb (0-1.5); Oxygen Saturation ABG 98.6 % (95.0-100.0); Oxyhemoglobin 96.7 % THb (90.0-100.0); PCO2 ABG 33.2 mmHg (35.0-45.0); PO2 ABG 117.3 mmHg (80.0-100.0); PO2 FiO2 Ratio Arterial Blood 1.17 %; Reduced Hemoglobin 2.9 %THb (0-5.0); Total Hemoglobin 9.4 g/dL (12.0-18.0); pH ABG 7.486 (7.350-7.450)
[2019-09-30 12:28] LABS: Arterial Blood Gas PEEP 18 cmH2O; Arterial Blood Gas Tidal Volume 340 ml; Arterial Blood Gas Vent Mode CMV; Arterial Blood Gas Ventilator rate 32 /MIN; Device VENTILATOR; Site Drawn ARTLINE
--- NOTE | 2019-09-30 13:24 | PM.IMPN ---
Progress Note: A&P Assessment and Plan (1) Acute respiratory failure with hypoxia: Code(s): J96.01 - Acute respiratory failure with hypoxia Status: Acute Assessment and Plan: Result of pneumonia. Acute worsening with transfer to ICU on 09/28/2019 with subsequent worsening requiring intubation on 09/29/2019. Has continued to have problems from a respiratory standpoint. Now on Flolan and IV steroids. Chest xray early this morning with worsened right sided pneumothorax and diffuse lung disease. Discussed with calculus teacher. With worsening condition, calculus teacher spoke with COVID-19 ICU team at [place] for possible transfer. Patient accepted in transfer with bed available. Air transport team arrived shortly after my visit with patient taken for transfer. Patient is DNR. (2) Bilateral pneumonia: Qualifiers: Lung location: lower lobe of lung Pneumonia type: due to unspecified organism Qualified Code(s): J18.9 - Pneumonia, unspecified organism Code(s): J18.9 - Pneumonia, unspecified organism Status: Acute Assessment and Plan: Chest xray on admission with bilateral indistinct reticulation, some ground glass opacities with continued worsening radiographically as noted above. Given fever and cough, clinically consistent with pneumonia versus pulmonary edema. COVID-19 testing initiated through [facility] with results now available and positive. Influenza testing negative. Remains on IV ceftriaxone and azithromycin. Sputum culture not performed based on Gram stain. Blood cultures remain negative. Group A Strep culture test negative. (3) COVID-19 virus infection: Code(s): U07.1 - COVID-19 Status: Acute Assessment and Plan: COVID-19 testing positive. Continue treatment of pneumonia, acute respiratory failure as noted above. Ferritin, LDH and CRP all remain elevated. Hydroxychloroquine started today with worsened respiratory status requiring intubation. Transferring to tertiary center as noted above. (4) Pneumothorax: Qualifiers: Pneumothorax type: unspecified pneumothorax Qualified Code(s): J93.9 - Pneumothorax, unspecified Code(s): J93.9 - Pneumothorax, unspecified Status: Acute Assessment and Plan: Complete right pneumothorax noted after intubation with general surgery consulted and chest tube placed. Worsened pneumothorax today with 2nd chest tube placed. Will need thoracic surgery consult at tertiary center. (5) Shock: Code(s): R57.9 - Shock, unspecified Status: Acute Assessment and Plan: Most likely result of viral pneumonia due to COVID-19. On Levophed but no longer requiring Vasopressin. Blood pressure reviewed On 09/30/2019 and stable. Telemetry reviewed on 09/30/2019 with sinus rhythm. 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 Glucose reviewed on 09/30/2019 and now elevated. Lantus discontinued with intubation with Levemir added today. Sliding scale insulin available as needed. (7) CHF (congestive heart failure): Qualifiers: Heart failure chronicity: chronic Heart failure type: unspecified Qualified Code(s): I50.9 - Heart failure, unspecified Code(s): I50.9 - Heart failure, unspecified Status: Acute Assessment and Plan: Echocardiogram December 2018 showing EF 55%
--- NOTE | 2019-09-30 13:25 | PM.TDS ---
Transfer Discharge Sum: Prov Provider Date of admission: 09/23/19 23:17 Primary care physician: Pennie Osullivan, MD Admitting clinician: Nissa Irene DO Attending physician on admission: Dwayne Fisher Consults: 09/23/19 Consult to Physician Routine Comment: Consulting Provider: Quinn Camacho Reason for consultation: CKD Has provider been notified: Yes 09/29/19 Consult to Physician Routine Comment: DR. RUBI SPOKE WITH DR. PARK Consulting Provider: Bud Park scalloper/MD group to consult: DR. PARK Reason for consultation: EMERGENT RIGHT CHEST TUBE PLACEMENT Has provider been notified: Yes Attending physician on discharge: Leanne Dueñas Discharging clinician: Leanne Dueñas Anticipated date of transfer: 09/30/19 Receiving physician/facility: Dr. Salazar/[facility] DS: Diagnosis Admitting Diagnosis Admitting Diagnosis: Pneumonia, unspecified organism Discharge Diagnosis (1) Acute respiratory failure with hypoxia: Code(s): J96.01 - Acute respiratory failure with hypoxia Status: Acute (2) Bilateral pneumonia: Qualifiers: Lung location: lower lobe of lung Pneumonia type: due to unspecified organism Qualified Code(s): J18.9 - Pneumonia, unspecified organism Code(s): J18.9 - Pneumonia, unspecified organism Status: Acute (3) COVID-19 virus infection: Code(s): U07.1 - COVID-19 Status: Acute (4) Pneumothorax: Qualifiers: Pneumothorax type: unspecified pneumothorax Qualified Code(s): J93.9 - Pneumothorax, unspecified Code(s): J93.9 - Pneumothorax, unspecified Status: Acute (5) Shock: Code(s): R57.9 - Shock, unspecified Status: Acute (6) Diabetes mellitus: Qualifiers: Chronic kidney disease stage: on chronic dialysis Diabetes mellitus complication detail: with chronic kidney disease Diabetes mellitus complication status: with kidney complications Diabetes mellitus senior care insulin use: with senior care use Diabetes mellitus type: type 2 Qualified Code(s): E11.22 - Type 2 diabetes mellitus with diabetic chronic kidney disease; N18.6 - End stage renal disease; Z79.4 - penitentiary (current) use of insulin; Z99.2 - Dependence on renal dialysis Code(s): E11.9 - Type 2 diabetes mellitus without complications Status: Chronic (7) CHF (congestive heart failure): Qualifiers: Heart failure chronicity: chronic Heart failure type: unspecified Qualified Code(s): I50.9 - Heart failure, unspecified Code(s): I50.9 - Heart failure, unspecified Status: Acute (8) ESRD on hemodialysis: Code(s): N18.6 - End stage renal disease; Z99.2 - Dependence on renal dialysis Status: Chronic (9) Thrombocytopenia: Code(s): D69.6 - Thrombocytopenia, unspecified Status: Acute (10) Erythropoietin deficiency anemia: Code(s): D63.1 - Anemia in chronic kidney disease Status: Acute Transfer Discharge Sum: Med Medications Active and Home Medications: Home Medications alprazolam 0.5 mg PO DAILY 09/21/19 [History Confirmed 09/24/19] atorvastatin 40 mg PO DAILY 09/21/19 [History Confirmed 09/24/19] carvedilol 25 mg PO BID 09/21/19 [History Confirmed 09/24/19] hydroxyzine HCl 25 mg PO DAILY 09/21/19 [History Confirmed 09/24/19] insulin glargine U-300 conc [Toujeo SoloStar U-300 Insulin] 50 unit SUBCUT HS 09/21/19 [History Confirmed 09/24/19] insulin lispro [Humalog KwikPen Insulin] 10 unit SUBCUT TIDWM 09/21/19 [History Confirmed 09/24/19] losartan 100 mg PO DAILY 09/21/19 [History Confirmed 09/24/19] omeprazole 40 mg PO DAILY 09/21/19 [History Confirmed 09/24/19] amoxicillin-pot clavulanate 1 tablet PO DAILY 09/24/19 [History Confirmed 09/24/19] aspirin [Adult Low Dose Aspirin] 81 mg PO DAILY 09/24/19 [History Confirmed 09/24/19] bumetanide 1 mg PO TID 09/24/19 [History Confirmed 09/24/19] fluticasone propionate 1 spray INT
[2019-10-01 11:17] LABS: Procalcitonin 1.45 ng/mL (<0.10)
--- NOTE | 2019-10-09 09:08 | PM.CNGS ---
Assessment and Plan Assessment and plan (1) Pneumothorax: Qualifiers: Pneumothorax type: unspecified pneumothorax Qualified Code(s): J93.9 - Pneumothorax, unspecified Code(s): J93.9 - Pneumothorax, unspecified Status: Acute Assessment and Plan: will proceed with emergent placement of right chest tube as patient intubated but still having trouble with saturations. At risk for tension pneumothorax as well. COVID-19 precautions will be taken. Discussed with . (2) COVID-19 virus infection: Code(s): U07.1 - COVID-19 Status: Acute (3) Acute respiratory failure with hypoxia: Code(s): J96.01 - Acute respiratory failure with hypoxia Status: Acute (4) ESRD on hemodialysis: Code(s): N18.6 - End stage renal disease; Z99.2 - Dependence on renal dialysis Status: Chronic (5) Bilateral pneumonia: Qualifiers: Lung location: lower lobe of lung Pneumonia type: due to unspecified organism Qualified Code(s): J18.9 - Pneumonia, unspecified organism Code(s): J18.9 - Pneumonia, unspecified organism Status: Acute (6) Diabetes mellitus: Qualifiers: Diabetes mellitus type: type 2 Diabetes mellitus detention insulin use: with detention use Diabetes mellitus complication status: with kidney complications Diabetes mellitus complication detail: with chronic kidney disease Chronic kidney disease stage: on chronic dialysis Qualified Code(s): E11.22 - Type 2 diabetes mellitus with diabetic chronic kidney disease; N18.6 - End stage renal disease; Z79.4 - continuous churn buttermaker (current) use of insulin; Z99.2 - Dependence on renal dialysis Code(s): E11.9 - Type 2 diabetes mellitus without complications Status: Chronic History of Present Illness Consult details Consult date: 09/29/19 Reason for consult: chest tube Requesting physician: Blu Issa MD Narrative: The patient is a 54-year-old woman with end-stage renal disease on hemodialysis. She has a right arm fistula. She is known to have COVID-19. She deteriorated and had to be intubated today. Her saturations were quite low and chest x-ray showed a right pneumothorax. I was asked to see her emergently for placement of a right chest tube. The patient is intubated sedated and unable to give any history herself. Review of Systems Review of Systems: ROS unobtainable: Yes unobtainable due to endotracheal tube and unobtainable due to medical condition PMFSH Past Medical History Medical History (Updated 09/30/19 @ 11:13 by Bud Park MD) CAD (coronary artery disease) CHF (congestive heart failure) Diabetes mellitus Erythropoietin deficiency anemia ESRD on hemodialysis Since June 2017 with hemodialysis Wednesday//Wednesday at [facility] in [place] managed by Dr. Zhao HTN (hypertension) KEO (renal osteodystrophy) Surgical History Surgical History H/O section H/O tubal ligation History of bilateral cataract extraction 2011 History of hysterectomy 2006 Hx of CABG Three vessel CABG in 2018 Presence of arteriovenous fistula for hemodialysis Left upper arm Family History Family History Mother Heart disease She in her 70s of late onset heart disease. Father Diabetes mellitus Hypertension Heart disease End stage renal disease Social History Social History Social History: Primary care physician: Dr. Pennie Osullivan Code status: Full code Smoking status: Never smoker Alcohol intake: current Alcohol use details: The patient only rarely drinks alcohol and only in small amounts. Substance use: never Additional living arrangements comments: She lives with her boyfriend of 4 years. She has 4 adult children who she re
== END 2019-09-30 14:04 | disposition short-term general hospital (02) | DRG 208 ==
LOC: ANHED 23:33 → ANH3MEDSUR 23:51 → ANHICU 09-30 11:08 → ANH3MEDSUR 10-05 09:13 → ANHICU 10-05 09:13
PROVIDERS: Internal Medicine; Internal Medicine Nephrology; Physician Assistant; Admitting Provider Internal Medicine; Emergency Provider Emergency Medicine; PCP Family Medicine; Visit Provider Hospitalist
DX: U07.1 COVID-19 (principal); J96.01 Acute respiratory failure with hypoxia; J12.89 Other viral pneumonia; N18.6 End stage renal disease; R57.8 Other shock; J80 Acute respiratory distress syndrome; I13.2 Hypertensive heart and chronic kidney disease with heart failure and with stage 5 chronic kidney disease, or end stage renal disease; Z68.41 Body mass index [BMI] 40.0-44.9, adult; I50.32 Chronic diastolic (congestive) heart failure; J93.83 Other pneumothorax; J95.812 Postprocedural air leak; E66.9 Obesity, unspecified; E11.22 Type 2 diabetes mellitus with diabetic chronic kidney disease; D69.6 Thrombocytopenia, unspecified; D63.1 Anemia in chronic kidney disease; I25.10 Atherosclerotic heart disease of native coronary artery without angina pectoris; N25.0 Renal osteodystrophy; Z99.2 Dependence on renal dialysis; Z79.4 Long term (current) use of insulin; Z98.42 Cataract extraction status, left eye; Z98.41 Cataract extraction status, right eye; Z90.710 Acquired absence of both cervix and uterus; Z95.1 Presence of aortocoronary bypass graft
CPT/HCPCS: 36415; 36600; 69209; 71045; 76705; 80048; 80053; 80069; 80076; 81001; 82375; 82607; 82728; 82746; 82805; 83050; 83605; 83615; 83690; 83735; 83880; 84100; 84145; 85025; 85027; 85380; 85610; 85730; 86140; 86706; 86738; 87040; 87070; 87081; 87205; 87340; 87804; 87880; 93005; 94002; 94003; 94640; 96365; 96367; 96375; 99285; A9270; C1729; C1751; C9113; G0257; J0131; J0456; J0696; J1644; J1815; J1940; J2250; J2550; J2704; J2920; J3010; J7030; J7050; J7060; P9047; Q4081